=== PATIENT | female | born 1945 | race African-American/Black ===

== ENCOUNTER 2018-01-14 19:24 | Inpatient (IN) ==
[2018-01-14] MEDS ORDERED: SODIUM CHLORIDE 0.9% 500 ML IV STA (19:55)
[2018-01-14] MEDS ORDERED: ASPIRIN 325 MG TABLET PO STA (19:55)
[2018-01-14 20:31] LABS: Basophils % 0.6 % (0.0-0.8); Eosinophils # 0.1 10*3/uL (0.0-0.87); Eosinophils % 4.2 % (0.00-10.9); Hematocrit 26.5 VOL% (35.7-47.0); Hemoglobin 8.4 GM/DL (12.0-16.0); Immature Granulocytes % 2.1 %; Immature Granulocytes Absolute 0.07 #; Lymphocytes # 1.1 10*3/uL (1.4-4.0); Lymphocytes % 33.2 % (21.3-54.2); Mean Corpuscular HGB Conc 31.7 GM/DL (32-36); Mean Corpuscular Hemoglobin 33 PG (27-34); Mean Corpuscular Volume 102.7 FL (87-102); Mean Platelet Volume 10.2 FL (9.6-12.0); Monocytes # 0.4 10*3/uL (0.11-0.8); Monocytes % 12.4 % (1.7-12.7); NRBC # 0.03 10*3/uL; Neutrophils # 1.6 10*3/uL (1.4-7.4); Neutrophils % 47.5 % (38.7-73.9); Platelet Count 124 T/CUMM (130-400); Red Blood Count 2.58 MC/CUMM (3.8-5.5); Red Cell Distribution Width 16.8 % (9.3-17.3); White Blood Count 3.3 T/CUMM (4-12)
[2018-01-14 20:42] LABS: PT Patient Result 10.4 SECS; Partial Thromboplastin Time 23.8 SECS (0-40)
[2018-01-14 20:52] LABS: Anisocytosis 1+; Eosinophils 5 % (0-10); Hypochromasia 1+; Lymphocytes 36 % (20-55); Macrocytosis 1+; Ovalocytes 1+; Platelet Estimate Decreased; Poikilocytosis 1+; Segmented Neutrophils 54 % (50-85); Tear Drop Cells Few; Total Cells Counted 100
[2018-01-14 20:57] LABS: Alanine Aminotransferase 21 U/L (13-56); Albumin 2.9 G/DL (3.4-5.0); Alkaline Phosphatase 69 U/L (45-117); Aspartate Amino Transferase 21 U/L (0-37); Blood Urea Nitrogen 14 MG/DL (7-18); Calcium 8.1 MG/DL (8.5-10.1); Glucose 137 MG/DL (74-106); Osmolality,Calculated 277.7 MOS/KG (273-304); Potassium 3.3 MMOL/L (3.5-5.1); Sodium 138 MMOL/L (136-145); Total Protein 6.9 G/DL (6.4-8.3)
[2018-01-14 21:00] LABS: Troponin I Only 0.086 NG/ML (0.00-0.045)
[2018-01-14 21:00] LABS: Lactic Acid 2.2 MMOL/L (0.4-2.0)
[2018-01-14 21:01] LABS: Thyroid Stimulating Hormone 0.515 uIU/ml (0.358-3.74)
[2018-01-14 21:02] LABS: Apearance,Urine Slightly Hazy (Clear); Bacteria,Urine Occasional /HPF (Few); Bilirubin,Urine Negative (Negative); Blood, Urine Small mg/dL (Negative); Glucose,Urine (UA) >=500 mg/dL (Negative); Ketones,Urine Negative (Negative); Mucus,Urine Occasional /LPF (Occasional); Nitrite,Urine Negative (Negative); Protein,Urine Negative; RBC,Urine 1 /HPF (0-4); Squamous Epithelial Cell,Urine Occasional /HPF (0-10); Urine Color Yellow (Yellow); Urine Specific Gravity 1.015 (1.001-1.035); Urine Urobilinogen < 2.0 EU/DL (0.2-1.0); WBC,Urine 1 /HPF (0-6)
[2018-01-14 21:02] LABS: Ammonia 11 UMOL/L (11-32)
[2018-01-14 21:18] LABS: Barbiturates Screen,Urine Negative (Negative); Benzodiazepines Screen,Urine Negative (Negative); Cannabinoid Screen,Urine Negative (Negative); Opiate Screen,Urine Negative (Negative); Phencyclidine Screen,Urine Negative (Negative)
[2018-01-14] MEDS ORDERED: ASPIRIN 325 MG TABLET ONE (21:37)
[2018-01-14] MEDS ORDERED: POTASSIUM CHLORIDE 20 MEQ TABLET PO STA (21:51)
[2018-01-14] MEDS ORDERED: PIPERACILLIN/TAZOBACTAM 3,375 MG VIAL IV ONE (22:40)
[2018-01-14] MEDS ORDERED: POTASSIUM CHLORIDE 20 MEQ TABLET PO ONE (22:40)
[2018-01-14] MEDS: PIPERACILLIN/TAZOBACTAM 3,375 MG in SODIUM CHLORIDE 0.9% 100 ML IV SCH (22:50)
[2018-01-14 22:53] LABS: PT Patient Result 10.3 SECS; Partial Thromboplastin Time 24.3 SECS (0-40)
[2018-01-15] MEDS ORDERED: MORPHINE 2 MG/1 ML SYRINGE IV PRN (00:33)
[2018-01-15] MEDS ORDERED: ACETAMINOPHEN 325 MG TABLET PO PRN (00:33)
[2018-01-15] MEDS ORDERED: ONDANSETRON 4 MG/2 ML VIAL IV PRN (00:33)
[2018-01-15] MEDS ORDERED: ENOXAPARIN 40 MG/0.4 ML SYRINGE SUBCUT SCH (00:33)
[2018-01-15 02:00] LABS: Lactic Acid 2.6 MMOL/L (0.4-2.0)
[2018-01-15 02:11] LABS: CKMB % 2.1 %
[2018-01-15 02:16] LABS: Troponin I Only 0.099 NG/ML (0.00-0.045)
[2018-01-15] MEDS: SODIUM CHLORIDE 0.9% 1,000 ML IV SCH (02:40)
[2018-01-15 05:15] LABS: Basophils % 0.3 % (0.0-0.8); Eosinophils # 0.1 10*3/uL (0.0-0.87); Eosinophils % 2.9 % (0.00-10.9); Hematocrit 24.8 VOL% (35.7-47.0); Hemoglobin 7.6 GM/DL (12.0-16.0); Immature Granulocytes % 1.3 %; Immature Granulocytes Absolute 0.04 #; Lymphocytes # 1.1 10*3/uL (1.4-4.0); Lymphocytes % 36.5 % (21.3-54.2); Mean Corpuscular HGB Conc 30.6 GM/DL (32-36); Mean Corpuscular Hemoglobin 32 PG (27-34); Mean Corpuscular Volume 104.2 FL (87-102); Monocytes # 0.4 10*3/uL (0.11-0.8); Monocytes % 11.7 % (1.7-12.7); NRBC # 0.05 10*3/uL; Neutrophils # 1.5 10*3/uL (1.4-7.4); Neutrophils % 47.3 % (38.7-73.9); Platelet Count 110 T/CUMM (130-400); Red Blood Count 2.38 MC/CUMM (3.8-5.5); Red Cell Distribution Width 16.9 % (9.3-17.3); White Blood Count 3.1 T/CUMM (4-12)
[2018-01-15 05:41] LABS: Band Neutrophils 3 % (0-10); Eosinophils 3 % (0-10); Giant Platelets Few; Hypochromasia 1+; Lymphocytes 34 % (20-55); Ovalocytes Slight; Platelet Estimate Decreased; Segmented Neutrophils 52 % (50-85); Total Cells Counted 100
[2018-01-15 05:42] LABS: Macrocytosis Slight
[2018-01-15 06:03] LABS: Albumin 2.6 G/DL (3.4-5.0); Bilirubin,Total 0.7 MG/DL (0.2-1.0); Calcium 7.7 MG/DL (8.5-10.1); Osmolality,Calculated 282.3 MOS/KG (273-304); Potassium 3.6 MMOL/L (3.5-5.1)
[2018-01-15 06:05] LABS: Risk Ratio 2.58; VLDL CHOLESTEROL 27.2 MG/DL
[2018-01-15] MEDS: PIPERACILLIN/TAZOBACTAM 3,375 MG in SODIUM CHLORIDE 0.9% 100 ML IV SCH ×3 (06:36→22:52)
[2018-01-15] MEDS ORDERED: NON-FORMULARY MEDICATION (Esomeprazole Magnesium [Esomeprazole] 40 MG) PO SCH (09:00)
[2018-01-15] MEDS ORDERED: ASPIRIN EC 325 MG TABLET PO SCH (09:00)
[2018-01-15] MEDS: CETIRIZINE 10 MG TABLET PO SCH (09:13)
[2018-01-15] MEDS: MULTIVITAMIN (CENTRUM) TABLET PO SCH (09:13)
[2018-01-15] MEDS: CALCIUM (CITRATE) 200 MG TABLET PO SCH (09:13)
[2018-01-15] MEDS: MAGNESIUM CHLORIDE 64 MG TABLET PO SCH (09:13)
[2018-01-15] MEDS: POTASSIUM CHLORIDE 20 MEQ TABLET PO SCH ×2 (09:13→21:08)
[2018-01-15] MEDS: MULTIVITAMIN (OCUVITE) TABLET PO SCH (09:13)
[2018-01-15] MEDS: DOCUSATE SODIUM 100 MG CAPSULE PO SCH ×2 (09:13→21:07)
[2018-01-15] MEDS: ASPIRIN EC 81 MG TABLET PO SCH (09:13)
[2018-01-15] MEDS: PANTOPRAZOLE 40 MG VIAL IV SCH (09:24)
[2018-01-15] MEDS ORDERED: LENALIDOMIDE 10 MG PO SCH (21:00)
[2018-01-15] MEDS ORDERED: DEXAMETHASONE 4 MG TABLET PO SCH (21:00)
[2018-01-15] MEDS: ATORVASTATIN 40 MG TABLET PO SCH (21:08)
[2018-01-15] MEDS: APIXABAN 2.5 MG TABLET PO SCH (21:08)
[2018-01-16] MEDS: PIPERACILLIN/TAZOBACTAM 3,375 MG in SODIUM CHLORIDE 0.9% 100 ML IV SCH ×3 (06:14→23:41)
[2018-01-16] MEDS: SODIUM CHLORIDE 0.9% 1,000 ML IV SCH ×2 (06:15→09:38)
[2018-01-16] MEDS: MULTIVITAMIN (OCUVITE) TABLET PO SCH (09:36)
[2018-01-16] MEDS: CALCIUM (CITRATE) 200 MG TABLET PO SCH (09:36)
[2018-01-16] MEDS: ASPIRIN EC 81 MG TABLET PO SCH (09:37)
[2018-01-16] MEDS: DOCUSATE SODIUM 100 MG CAPSULE PO SCH ×2 (09:37→20:32)
[2018-01-16] MEDS: MAGNESIUM CHLORIDE 64 MG TABLET PO SCH (09:37)
[2018-01-16] MEDS: MULTIVITAMIN (CENTRUM) TABLET PO SCH (09:37)
[2018-01-16] MEDS: CETIRIZINE 10 MG TABLET PO SCH (09:37)
[2018-01-16] MEDS: APIXABAN 2.5 MG TABLET PO SCH ×2 (09:37→20:32)
[2018-01-16] MEDS: POTASSIUM CHLORIDE 20 MEQ TABLET PO SCH ×2 (09:37→20:32)
[2018-01-16] MEDS: PANTOPRAZOLE 40 MG VIAL IV SCH (09:38)
[2018-01-16 10:00] LABS: Apearance,Urine CLEAR (Clear); Bilirubin,Urine Negative (Negative); Blood, Urine Small mg/dL (Negative); Glucose,Urine (UA) >=500 mg/dL (Negative); Ketones,Urine Negative (Negative); Nitrite,Urine Negative (Negative); Protein,Urine Negative; RBC,Urine 2 /HPF (0-4); Squamous Epithelial Cell,Urine Occasional /HPF (0-10); Urine Color Straw (Yellow); Urine Specific Gravity 1.008 (1.001-1.035); Urine Urobilinogen < 2.0 EU/DL (0.2-1.0); WBC,Urine <1 /HPF (0-6)
[2018-01-16] MEDS: ATORVASTATIN 40 MG TABLET PO SCH (20:32)
[2018-01-17] MEDS: SODIUM CHLORIDE 0.9% 1,000 ML IV SCH ×2 (05:06→17:19)
[2018-01-17] MEDS: PIPERACILLIN/TAZOBACTAM 3,375 MG in SODIUM CHLORIDE 0.9% 100 ML IV SCH ×2 (06:05→17:19)
[2018-01-17] MEDS: ASPIRIN EC 81 MG TABLET PO SCH (08:47)
[2018-01-17] MEDS: APIXABAN 2.5 MG TABLET PO SCH (08:47)
[2018-01-17] MEDS: POTASSIUM CHLORIDE 20 MEQ TABLET PO SCH (08:48)
[2018-01-17] MEDS: CETIRIZINE 10 MG TABLET PO SCH (08:48)
[2018-01-17] MEDS: DOCUSATE SODIUM 100 MG CAPSULE PO SCH (08:48)
[2018-01-17] MEDS: MAGNESIUM CHLORIDE 64 MG TABLET PO SCH (08:49)
[2018-01-17] MEDS: MULTIVITAMIN (OCUVITE) TABLET PO SCH (08:50)
[2018-01-17] MEDS: CALCIUM (CITRATE) 200 MG TABLET PO SCH (08:51)
[2018-01-17] MEDS: MULTIVITAMIN (CENTRUM) TABLET PO SCH (08:51)
[2018-01-17] MEDS: PANTOPRAZOLE 40 MG VIAL IV SCH (08:54)
[2018-01-17 19:54] VITALS: BP 121/58
== END 2018-01-17 18:20 | DRG 64 ==
LOC: EDUNIT# → EDBD → N.ED 19:24 → N.EDINP 22:54 → N.4E 23:37
PROVIDERS: ADMIT Family Medicine; ATTEND Family Medicine

== ENCOUNTER 2018-03-30 11:52 | Inpatient (IN) ==
[2018-03-30 15:27] LABS: Eosinophils # 0.1 10*3/uL (0.0-0.87); Hematocrit 28.2 VOL% (35.7-47.0); Hemoglobin 9.1 GM/DL (12.0-16.0); Immature Granulocytes % 0.6 %; Immature Granulocytes Absolute 0.02 #; Lymphocytes # 1.3 10*3/uL (1.4-4.0); Lymphocytes % 37.6 % (21.3-54.2); Mean Corpuscular HGB Conc 32.3 GM/DL (32-36); Mean Corpuscular Hemoglobin 32 PG (27-34); Mean Corpuscular Volume 99.3 FL (87-102); Mean Platelet Volume 10.9 FL (9.6-12.0); Monocytes # 0.4 10*3/uL (0.11-0.8); Monocytes % 12.7 % (1.7-12.7); NRBC # 0.03 10*3/uL; Neutrophils # 1.6 10*3/uL (1.4-7.4); Neutrophils % 45.1 % (38.7-73.9); Platelet Count 71 T/CUMM (130-400); Red Blood Count 2.84 MC/CUMM (3.8-5.5); Red Cell Distribution Width 19.9 % (9.3-17.3); White Blood Count 3.5 T/CUMM (4-12)
[2018-03-30 15:33] LABS: PT Patient Result 10.9 SECS
[2018-03-30 15:43] LABS: Albumin 3.4 G/DL (3.4-5.0); Bilirubin,Total 1.4 MG/DL (0.2-1.0); Calcium 8.6 MG/DL (8.5-10.1); Osmolality,Calculated 278.7 MOS/KG (273-304); Potassium 4.5 MMOL/L (3.5-5.1); Total Protein 6.9 G/DL (6.4-8.3)
[2018-03-30 15:50] LABS: Eosinophils 4 % (0-10); Lymphocytes 37 % (20-55); Nucleated Red Blood Cells 1 (0-5); Segmented Neutrophils 47 % (50-85); Total Cells Counted 100
[2018-03-30 15:51] LABS: Anisocytosis 1+; Elliptocytes Few
[2018-03-30 15:52] LABS: Platelet Estimate Decreased
[2018-03-30 15:58] LABS: Apearance,Urine CLOUDY (Clear); Bilirubin,Urine Negative (Negative); Blood, Urine Moderate mg/dL (Negative); Glucose,Urine (UA) Negative (Negative); Ketones,Urine Negative (Negative); Mucus,Urine Occasional /LPF (Occasional); Nitrite,Urine Negative (Negative); Protein,Urine 30 MG/DL; RBC,Urine 39 /HPF (0-4); Squamous Epithelial Cell,Urine Occasional /HPF (0-10); Urine Color Yellow (Yellow); Urine Specific Gravity 1.017 (1.001-1.035); Urine Urobilinogen < 2.0 EU/DL (0.2-1.0); WBC,Urine 231 /HPF (0-6)
[2018-03-30] MEDS ORDERED: cefTRIAXone 1,000 MG VIAL IV STA (18:14)
[2018-03-30] MEDS ORDERED: SODIUM CHLORIDE 0.9% 500 ML IV STA (18:15)
[2018-03-30] MEDS ORDERED: cefTRIAXone 1,000 MG VIAL ONE (18:35)
[2018-03-30] MEDS: DEXTROSE 5% NACL 0.45% 1,000 ML IV SCH (21:43)
[2018-03-31 05:37] LABS: Basophils % 0.4 % (0.0-0.8); Eosinophils # 0.1 10*3/uL (0.0-0.87); Eosinophils % 5.2 % (0.00-10.9); Hematocrit 22.5 VOL% (35.7-47.0); Hemoglobin 7.6 GM/DL (12.0-16.0); Immature Granulocytes % 0.4 %; Immature Granulocytes Absolute 0.01 #; Lymphocytes # 0.8 10*3/uL (1.4-4.0); Lymphocytes % 29.2 % (21.3-54.2); Mean Corpuscular HGB Conc 33.8 GM/DL (32-36); Mean Corpuscular Hemoglobin 32 PG (27-34); Mean Corpuscular Volume 95.7 FL (87-102); Mean Platelet Volume 11.5 FL (9.6-12.0); Monocytes # 0.5 10*3/uL (0.11-0.8); Monocytes % 16.9 % (1.7-12.7); Neutrophils # 1.3 10*3/uL (1.4-7.4); Neutrophils % 47.9 % (38.7-73.9); Red Blood Count 2.35 MC/CUMM (3.8-5.5); Red Cell Distribution Width 19.8 % (9.3-17.3); White Blood Count 2.7 T/CUMM (4-12)
[2018-03-31 05:43] LABS: Platelet Count 72 T/CUMM (130-400)
[2018-03-31 06:04] LABS: Albumin 2.9 G/DL (3.4-5.0); Bilirubin,Total 1.1 MG/DL (0.2-1.0); Calcium 8.1 MG/DL (8.5-10.1); Osmolality,Calculated 275.8 MOS/KG (273-304); Potassium 3.4 MMOL/L (3.5-5.1); Total Protein 5.5 G/DL (6.4-8.3)
[2018-03-31 06:11] LABS: Band Neutrophils 1 % (0-10); Eosinophils 6 % (0-10); Hypochromasia 1+; Lymphocytes 23 % (20-55); Ovalocytes Slight; Platelet Estimate Decreased; Segmented Neutrophils 59 % (50-85); Total Cells Counted 100
[2018-03-31] MEDS: DEXTROSE 5% NACL 0.45% 1,000 ML IV SCH ×3 (06:27→23:39)
[2018-03-31] MEDS ORDERED: ACETAMINOPHEN 325 MG TABLET PO PRN (08:04)
[2018-03-31 08:59] LABS: Osmolality,Calculated 274.8 MOS/KG (273-304); Potassium 3.6 MMOL/L (3.5-5.1); Total Protein 5.9 G/DL (6.4-8.3)
[2018-03-31 09:28] LABS: Immunoglobulin A < 31 MG/DL (70-400); Immunoglobulin G 1120 MG/DL (700-1600); Immunoglobulin M < 21 MG/DL (40-230); Total Protein 5.9 G/DL (6.4-8.3)
[2018-03-31] MEDS: PANTOPRAZOLE 40 MG TABLET PO SCH (11:02)
[2018-03-31] MEDS: ASPIRIN EC 81 MG TABLET PO SCH (11:02)
[2018-03-31] MEDS: MULTIVITAMIN (OCUVITE) TABLET PO SCH (11:03)
[2018-03-31] MEDS: MAGNESIUM CHLORIDE 64 MG TABLET PO SCH (11:03)
[2018-03-31] MEDS: MULTIVITAMIN (CENTRUM) TABLET PO SCH (11:03)
[2018-03-31] MEDS: CALCIUM (CITRATE) 200 MG TABLET PO SCH (11:05)
[2018-03-31] MEDS: CETIRIZINE 10 MG TABLET PO SCH (11:05)
[2018-03-31] MEDS: DOCUSATE SODIUM 100 MG CAPSULE PO SCH ×2 (11:06→20:59)
[2018-03-31] MEDS: POTASSIUM CHLORIDE 20 MEQ TABLET PO SCH (18:49)
[2018-03-31] MEDS: ATORVASTATIN 40 MG TABLET PO SCH (20:57)
[2018-03-31] MEDS: Lenalidomide [Revlimid] 10 MG PO SCH (20:57)
[2018-04-01] MEDS: DEXTROSE 5% NACL 0.45% 1,000 ML IV SCH ×4 (04:35→23:50)
[2018-04-01 05:47] LABS: Basophils % 0.4 % (0.0-0.8); Eosinophils # 0.1 10*3/uL (0.0-0.87); Eosinophils % 4.4 % (0.00-10.9); Hematocrit 29.9 VOL% (35.7-47.0); Immature Granulocytes % 0.7 %; Immature Granulocytes Absolute 0.02 #; Lymphocytes % 37.6 % (21.3-54.2); Mean Corpuscular HGB Conc 33.8 GM/DL (32-36); Mean Corpuscular Hemoglobin 32 PG (27-34); Mean Corpuscular Volume 94.3 FL (87-102); Mean Platelet Volume 10.6 FL (9.6-12.0); Monocytes # 0.4 10*3/uL (0.11-0.8); Monocytes % 14.2 % (1.7-12.7); Neutrophils # 1.2 10*3/uL (1.4-7.4); Neutrophils % 42.7 % (38.7-73.9); Platelet Count 76 T/CUMM (130-400); Red Blood Count 3.17 MC/CUMM (3.8-5.5); Red Cell Distribution Width 18.7 % (9.3-17.3); White Blood Count 2.7 T/CUMM (4-12)
[2018-04-01 05:53] LABS: Hemoglobin 10.1 GM/DL (12.0-16.0)
[2018-04-01 06:00] LABS: Immunoglobulin A (Chem) < 31 MG/DL (70-400); Immunoglobulin G (Chem) 1120 MG/DL (700-1600); Immunoglobulin M (Chem) < 21 MG/DL (40-230); Total Protein (Chem) 5.9 G/DL (6.4-8.3)
[2018-04-01 06:11] LABS: Band Neutrophils 1 % (0-10); Eosinophils 7 % (0-10); Hypochromasia 1+; Lymphocytes 32 % (20-55); Platelet Estimate Decreased; Segmented Neutrophils 47 % (50-85); Total Cells Counted 100
[2018-04-01 06:12] LABS: Giant Platelets Few; Ovalocytes Slight
[2018-04-01 09:35] LABS: Albumin (SPE) 3.5 G/DL (3.2-5.3); Albumin (SPE) Rel % 59.5 %; Alpha 1 (SPE) 0.2 G/DL (0.1-0.4); Alpha 1 (SPE) Rel % 3.5 %; Alpha 2 (SPE) 0.6 G/DL (0.4-1.0); Alpha 2 (SPE) Rel % 9.6 %; Beta (SPE) 0.7 G/DL (0.5-1.1); Beta (SPE) Rel % 11.8 %; Gamma (SPE) 0.9 G/DL (0.7-1.7)
[2018-04-01 09:36] LABS: Gamma (SPE) Rel % 15.6 %
[2018-04-01 10:02] LABS: Immuno Free Light Chain Kappa 1.24 MG/DL (0.33-1.94); Immuno Free Light Chain Lambda 0.65 MG/DL (0.57-2.63); Immuno Free Light Chain Ratio 1.91 MG/DL (0.26-1.65)
[2018-04-01] MEDS: MULTIVITAMIN (OCUVITE) TABLET PO SCH (10:08)
[2018-04-01] MEDS: POTASSIUM CHLORIDE 20 MEQ TABLET PO SCH ×2 (10:08→17:24)
[2018-04-01] MEDS: PANTOPRAZOLE 40 MG TABLET PO SCH (10:08)
[2018-04-01] MEDS: MULTIVITAMIN (CENTRUM) TABLET PO SCH (10:08)
[2018-04-01] MEDS: CALCIUM (CITRATE) 200 MG TABLET PO SCH (10:08)
[2018-04-01] MEDS: MAGNESIUM CHLORIDE 64 MG TABLET PO SCH (10:08)
[2018-04-01] MEDS: CETIRIZINE 10 MG TABLET PO SCH (10:08)
[2018-04-01] MEDS: DOCUSATE SODIUM 100 MG CAPSULE PO SCH ×2 (10:09→21:38)
[2018-04-01] MEDS: ASPIRIN EC 81 MG TABLET PO SCH (10:09)
[2018-04-01] MEDS: FILGRASTIM-SNDZ 300 MCG/0.5 ML SYRINGE SUBCUT SCH (10:09)
[2018-04-01] MEDS: VANCOMYCIN INJ 1,000 MG in SODIUM CHLORIDE 0.9% 250 ML IV SCH ×2 (10:52→23:11)
[2018-04-01] MEDS ORDERED: DIPHENOXYLATE/ATROPINE 2.5-0.025 MG TABLET PO PRN (13:13)
[2018-04-01] MEDS: Lenalidomide [Revlimid] 10 MG PO SCH (20:58)
[2018-04-01] MEDS: ATORVASTATIN 40 MG TABLET PO SCH (20:58)
[2018-04-02 06:18] LABS: Basophils % 0.6 % (0.0-0.8); Eosinophils # 0.2 10*3/uL (0.0-0.87); Eosinophils % 4.4 % (0.00-10.9); Hemoglobin 9.5 GM/DL (12.0-16.0); Immature Granulocytes % 0.8 %; Immature Granulocytes Absolute 0.03 #; Lymphocytes # 0.9 10*3/uL (1.4-4.0); Lymphocytes % 25.8 % (21.3-54.2); Mean Corpuscular HGB Conc 32.8 GM/DL (32-36); Mean Corpuscular Hemoglobin 31 PG (27-34); Mean Corpuscular Volume 94.5 FL (87-102); Mean Platelet Volume 11.4 FL (9.6-12.0); Monocytes # 0.5 10*3/uL (0.11-0.8); Monocytes % 13.3 % (1.7-12.7); Neutrophils % 55.1 % (38.7-73.9); Platelet Count 75 T/CUMM (130-400); Red Blood Count 3.07 MC/CUMM (3.8-5.5); White Blood Count 3.6 T/CUMM (4-12)
[2018-04-02 07:07] LABS: Band Neutrophils 7 % (0-10); Eosinophils 2 % (0-10); Hypochromasia Slight; Lymphocytes 23 % (20-55); Myelocytes 1 %; Nucleated Red Blood Cells 1 (0-5); Segmented Neutrophils 58 % (50-85); Total Cells Counted 100
[2018-04-02 07:08] LABS: Platelet Estimate Decreased
[2018-04-02 07:09] LABS: Albumin 2.3 G/DL (3.4-5.0); Bilirubin,Total 1.3 MG/DL (0.2-1.0); Calcium 6.8 MG/DL (8.5-10.1); Osmolality,Calculated 282.1 MOS/KG (273-304); Potassium 3.5 MMOL/L (3.5-5.1); Total Protein 4.9 G/DL (6.4-8.3)
[2018-04-02] MEDS ORDERED: DEXAMETHASONE 4 MG TABLET PO SCH (08:04)
[2018-04-02] MEDS: FLUCONAZOLE 200 MG TABLET PO SCH (09:29)
[2018-04-02] MEDS: MULTIVITAMIN (OCUVITE) TABLET PO SCH (09:29)
[2018-04-02] MEDS: MAGNESIUM CHLORIDE 64 MG TABLET PO SCH (09:29)
[2018-04-02] MEDS: MULTIVITAMIN (CENTRUM) TABLET PO SCH (09:29)
[2018-04-02] MEDS: CALCIUM (CITRATE) 200 MG TABLET PO SCH (09:29)
[2018-04-02] MEDS: FILGRASTIM-SNDZ 300 MCG/0.5 ML SYRINGE SUBCUT SCH (09:30)
[2018-04-02] MEDS: CETIRIZINE 10 MG TABLET PO SCH (09:30)
[2018-04-02] MEDS: PANTOPRAZOLE 40 MG TABLET PO SCH (09:30)
[2018-04-02] MEDS: POTASSIUM CHLORIDE 20 MEQ TABLET PO SCH ×2 (09:30→18:16)
[2018-04-02] MEDS: ASPIRIN EC 81 MG TABLET PO SCH (09:30)
[2018-04-02] MEDS: DOCUSATE SODIUM 100 MG CAPSULE PO SCH ×2 (09:34→21:06)
[2018-04-02] MEDS: VANCOMYCIN INJ 1,000 MG in SODIUM CHLORIDE 0.9% 250 ML IV SCH ×2 (09:39→21:06)
[2018-04-02] MEDS: DEXTROSE 5% NACL 0.45% 1,000 ML IV SCH ×2 (16:15)
[2018-04-02] MEDS: ATORVASTATIN 40 MG TABLET PO SCH (21:06)
[2018-04-02] MEDS: Lenalidomide [Revlimid] 10 MG PO SCH (21:06)
[2018-04-03] MEDS: DEXTROSE 5% NACL 0.45% 1,000 ML IV SCH ×5 (02:00→20:04)
[2018-04-03 04:08] LABS: Basophils % 0.5 % (0.0-0.8); Hematocrit 29.2 VOL% (35.7-47.0); Hemoglobin 10.2 GM/DL (12.0-16.0); Immature Granulocytes % 14.1 %; Immature Granulocytes Absolute 1.06 #; Lymphocytes # 1.4 10*3/uL (1.4-4.0); Lymphocytes % 18.5 % (21.3-54.2); Mean Corpuscular HGB Conc 34.9 GM/DL (32-36); Mean Corpuscular Hemoglobin 32 PG (27-34); Mean Corpuscular Volume 90.7 FL (87-102); Monocytes # 0.8 10*3/uL (0.11-0.8); Monocytes % 10.2 % (1.7-12.7); Neutrophils # 4.3 10*3/uL (1.4-7.4); Neutrophils % 56.7 % (38.7-73.9); Platelet Count 104 T/CUMM (130-400); Red Blood Count 3.22 MC/CUMM (3.8-5.5); Red Cell Distribution Width 18.6 % (9.3-17.3); White Blood Count 7.5 T/CUMM (4-12)
[2018-04-03 04:37] LABS: Band Neutrophils 3 % (0-10); Hypochromasia 1+; Lymphocytes 11 % (20-55); Segmented Neutrophils 72 % (50-85); Total Cells Counted 100
[2018-04-03 04:38] LABS: Platelet Estimate Decreased
[2018-04-03 04:41] LABS: Albumin 2.6 G/DL (3.4-5.0); Bilirubin,Total 1.1 MG/DL (0.2-1.0); Calcium 7.2 MG/DL (8.5-10.1); Osmolality,Calculated 279.5 MOS/KG (273-304); Total Protein 5.5 G/DL (6.4-8.3)
[2018-04-03] MEDS: POTASSIUM CHLORIDE 20 MEQ TABLET PO SCH ×2 (09:42→16:37)
[2018-04-03] MEDS: FLUCONAZOLE 200 MG TABLET PO SCH (09:42)
[2018-04-03] MEDS: DOCUSATE SODIUM 100 MG CAPSULE PO SCH ×2 (09:42→20:57)
[2018-04-03] MEDS: PANTOPRAZOLE 40 MG TABLET PO SCH (09:42)
[2018-04-03] MEDS: MAGNESIUM CHLORIDE 64 MG TABLET PO SCH (09:42)
[2018-04-03] MEDS: CALCIUM (CITRATE) 200 MG TABLET PO SCH (09:42)
[2018-04-03] MEDS: MULTIVITAMIN (OCUVITE) TABLET PO SCH (09:42)
[2018-04-03] MEDS: FILGRASTIM-SNDZ 300 MCG/0.5 ML SYRINGE SUBCUT SCH (09:43)
[2018-04-03] MEDS: ASPIRIN EC 81 MG TABLET PO SCH (09:43)
[2018-04-03] MEDS: CETIRIZINE 10 MG TABLET PO SCH (09:43)
[2018-04-03] MEDS: MULTIVITAMIN (CENTRUM) TABLET PO SCH (09:47)
[2018-04-03] MEDS: VANCOMYCIN INJ 1,000 MG in SODIUM CHLORIDE 0.9% 250 ML IV SCH ×2 (09:48→20:58)
[2018-04-03] MEDS: ATORVASTATIN 40 MG TABLET PO SCH (20:57)
[2018-04-03] MEDS: Lenalidomide [Revlimid] 10 MG PO SCH (20:57)
[2018-04-04 05:25] LABS: Basophils % 0.4 % (0.0-0.8); Eosinophils % 0.1 % (0.00-10.9); Hematocrit 29.1 VOL% (35.7-47.0); Hemoglobin 9.6 GM/DL (12.0-16.0); Immature Granulocytes % 1.8 %; Immature Granulocytes Absolute 0.17 #; Lymphocytes # 1.2 10*3/uL (1.4-4.0); Lymphocytes % 12.1 % (21.3-54.2); Mean Corpuscular Hemoglobin 31 PG (27-34); Mean Corpuscular Volume 94.8 FL (87-102); Mean Platelet Volume 10.9 FL (9.6-12.0); Monocytes # 1.3 10*3/uL (0.11-0.8); Neutrophils % 72.6 % (38.7-73.9); Platelet Count 111 T/CUMM (130-400); Red Blood Count 3.07 MC/CUMM (3.8-5.5); Red Cell Distribution Width 18.9 % (9.3-17.3); White Blood Count 9.7 T/CUMM (4-12)
[2018-04-04 05:51] LABS: Band Neutrophils 2 % (0-10); Lymphocytes 20 % (20-55); Segmented Neutrophils 66 % (50-85); Total Cells Counted 100
[2018-04-04 05:52] LABS: Hypochromasia 1+
[2018-04-04 05:53] LABS: Anisocytosis Slight; Elliptocytes Few; Spherocytes Few
[2018-04-04 05:54] LABS: Platelet Estimate Decreased
[2018-04-04 06:26] LABS: Albumin 2.6 G/DL (3.4-5.0); Bilirubin,Total 0.8 MG/DL (0.2-1.0); Calcium 7.2 MG/DL (8.5-10.1); Potassium 3.8 MMOL/L (3.5-5.1); Total Protein 5.4 G/DL (6.4-8.3)
[2018-04-04] MEDS: VANCOMYCIN INJ 1,000 MG in SODIUM CHLORIDE 0.9% 250 ML IV SCH ×2 (09:57→23:02)
[2018-04-04] MEDS: MULTIVITAMIN (OCUVITE) TABLET PO SCH (09:59)
[2018-04-04] MEDS: ASPIRIN EC 81 MG TABLET PO SCH (09:59)
[2018-04-04] MEDS: PANTOPRAZOLE 40 MG TABLET PO SCH (09:59)
[2018-04-04] MEDS: CIPROFLOXACIN 250 MG TABLET PO SCH ×2 (09:59→22:21)
[2018-04-04] MEDS: MAGNESIUM CHLORIDE 64 MG TABLET PO SCH (09:59)
[2018-04-04] MEDS: POTASSIUM CHLORIDE 20 MEQ TABLET PO SCH ×2 (09:59→17:13)
[2018-04-04] MEDS: CALCIUM (CITRATE) 200 MG TABLET PO SCH (09:59)
[2018-04-04] MEDS: CETIRIZINE 10 MG TABLET PO SCH (10:00)
[2018-04-04] MEDS: DEXTROSE 5% NACL 0.45% 1,000 ML IV SCH ×2 (10:01→19:25)
[2018-04-04] MEDS: FILGRASTIM-SNDZ 300 MCG/0.5 ML SYRINGE SUBCUT SCH (10:01)
[2018-04-04] MEDS: MULTIVITAMIN (CENTRUM) TABLET PO SCH (10:05)
[2018-04-04] MEDS: DOCUSATE SODIUM 100 MG CAPSULE PO SCH ×2 (10:10→22:21)
[2018-04-04] MEDS: ATORVASTATIN 40 MG TABLET PO SCH (22:20)
[2018-04-04] MEDS: Lenalidomide [Revlimid] 10 MG PO SCH (22:20)
[2018-04-05 04:01] LABS: Basophils # 0.1 10*3/uL (0.0-0.2); Basophils % 0.7 % (0.0-0.8); Eosinophils # 0.2 10*3/uL (0.0-0.87); Eosinophils % 2.3 % (0.00-10.9); Hematocrit 28.3 VOL% (35.7-47.0); Hemoglobin 9.5 GM/DL (12.0-16.0); Immature Granulocytes % 1.5 %; Immature Granulocytes Absolute 0.11 #; Lymphocytes % 14.1 % (21.3-54.2); Mean Corpuscular HGB Conc 33.6 GM/DL (32-36); Mean Corpuscular Hemoglobin 32 PG (27-34); Mean Corpuscular Volume 94.3 FL (87-102); Mean Platelet Volume 10.6 FL (9.6-12.0); NRBC # 0.02 10*3/uL; Neutrophils % 67.4 % (38.7-73.9); Platelet Count 99 T/CUMM (130-400); Red Cell Distribution Width 19.2 % (9.3-17.3); White Blood Count 7.4 T/CUMM (4-12)
[2018-04-05 04:19] LABS: Albumin 2.3 G/DL (3.4-5.0); Calcium 6.5 MG/DL (8.5-10.1); Osmolality,Calculated 285.8 MOS/KG (273-304); Potassium 3.5 MMOL/L (3.5-5.1); Total Protein 4.9 G/DL (6.4-8.3)
[2018-04-05] MEDS: DEXTROSE 5% NACL 0.45% 1,000 ML IV SCH (04:41)
[2018-04-05 07:01] LABS: Band Neutrophils 1 % (0-10); Lymphocytes 12 % (20-55); Platelet Estimate Decreased; Segmented Neutrophils 83 % (50-85); Total Cells Counted 100
[2018-04-05] MEDS: MULTIVITAMIN (CENTRUM) TABLET PO SCH (11:19)
[2018-04-05] MEDS: CALCIUM (CITRATE) 200 MG TABLET PO SCH (11:19)
[2018-04-05] MEDS: MULTIVITAMIN (OCUVITE) TABLET PO SCH (11:19)
[2018-04-05] MEDS: PANTOPRAZOLE 40 MG TABLET PO SCH (11:20)
[2018-04-05] MEDS: CIPROFLOXACIN 250 MG TABLET PO SCH ×2 (11:20→20:36)
[2018-04-05] MEDS: ASPIRIN EC 81 MG TABLET PO SCH (11:20)
[2018-04-05] MEDS: MAGNESIUM CHLORIDE 64 MG TABLET PO SCH (11:20)
[2018-04-05] MEDS: POTASSIUM CHLORIDE 20 MEQ TABLET PO SCH ×2 (11:20→18:16)
[2018-04-05] MEDS: DOCUSATE SODIUM 100 MG CAPSULE PO SCH ×2 (11:20→20:36)
[2018-04-05] MEDS: CETIRIZINE 10 MG TABLET PO SCH (11:20)
[2018-04-05] MEDS: VANCOMYCIN INJ 1,000 MG in SODIUM CHLORIDE 0.9% 250 ML IV SCH ×2 (11:21→20:59)
[2018-04-05] MEDS: FILGRASTIM-SNDZ 300 MCG/0.5 ML SYRINGE SUBCUT SCH (11:21)
[2018-04-05] MEDS: NYSTATIN 500,000 UNIT/5 ML UDCUP SWISH/SWAL SCH ×3 (13:15→20:34)
[2018-04-05] MEDS: Lenalidomide [Revlimid] 10 MG PO SCH (20:35)
[2018-04-05] MEDS: ATORVASTATIN 40 MG TABLET PO SCH (20:36)
[2018-04-06] MEDS: DEXTROSE 5% NACL 0.45% 1,000 ML IV SCH ×4 (01:56→11:56)
[2018-04-06 06:57] LABS: Basophils % 0.6 % (0.0-0.8); Eosinophils # 0.3 10*3/uL (0.0-0.87); Eosinophils % 3.8 % (0.00-10.9); Hematocrit 29.5 VOL% (35.7-47.0); Hemoglobin 9.6 GM/DL (12.0-16.0); Immature Granulocytes % 1.7 %; Immature Granulocytes Absolute 0.11 #; Lymphocytes # 1.2 10*3/uL (1.4-4.0); Lymphocytes % 18.8 % (21.3-54.2); Mean Corpuscular HGB Conc 32.5 GM/DL (32-36); Mean Corpuscular Hemoglobin 31 PG (27-34); Mean Corpuscular Volume 96.1 FL (87-102); Monocytes # 0.7 10*3/uL (0.11-0.8); Monocytes % 10.7 % (1.7-12.7); Neutrophils # 4.3 10*3/uL (1.4-7.4); Neutrophils % 64.4 % (38.7-73.9); Platelet Count 96 T/CUMM (130-400); Red Blood Count 3.07 MC/CUMM (3.8-5.5); Red Cell Distribution Width 18.6 % (9.3-17.3); White Blood Count 6.6 T/CUMM (4-12)
[2018-04-06 07:20] LABS: Band Neutrophils 7 % (0-10); Eosinophils 2 % (0-10); Hypochromasia Slight; Lymphocytes 18 % (20-55); Platelet Estimate Decreased; Polychromasia Slight; Segmented Neutrophils 62 % (50-85); Total Cells Counted 100
[2018-04-06 07:26] LABS: Albumin 2.4 G/DL (3.4-5.0); Bilirubin,Total 1.1 MG/DL (0.2-1.0); Osmolality,Calculated 285.8 MOS/KG (273-304); Potassium 3.4 MMOL/L (3.5-5.1)
[2018-04-06] MEDS: NYSTATIN 500,000 UNIT/5 ML UDCUP SWISH/SWAL SCH ×5 (09:00→21:24)
[2018-04-06] MEDS: VANCOMYCIN INJ 1,000 MG in SODIUM CHLORIDE 0.9% 250 ML IV SCH ×2 (11:51→21:22)
[2018-04-06] MEDS: CETIRIZINE 10 MG TABLET PO SCH (11:52)
[2018-04-06] MEDS: ASPIRIN EC 81 MG TABLET PO SCH (11:52)
[2018-04-06] MEDS: FILGRASTIM-SNDZ 300 MCG/0.5 ML SYRINGE SUBCUT SCH (11:52)
[2018-04-06] MEDS: MULTIVITAMIN (CENTRUM) TABLET PO SCH (11:52)
[2018-04-06] MEDS: CALCIUM (CITRATE) 200 MG TABLET PO SCH (11:52)
[2018-04-06] MEDS: MAGNESIUM CHLORIDE 64 MG TABLET PO SCH (11:52)
[2018-04-06] MEDS: PANTOPRAZOLE 40 MG TABLET PO SCH (11:53)
[2018-04-06] MEDS: DOCUSATE SODIUM 100 MG CAPSULE PO SCH ×2 (11:53→21:18)
[2018-04-06] MEDS: CIPROFLOXACIN 250 MG TABLET PO SCH ×2 (11:53→21:18)
[2018-04-06] MEDS: MULTIVITAMIN (OCUVITE) TABLET PO SCH (11:53)
[2018-04-06] MEDS: POTASSIUM CHLORIDE 20 MEQ TABLET PO SCH ×3 (11:57→18:20)
[2018-04-06] MEDS: Lenalidomide [Revlimid] 10 MG PO SCH (21:17)
[2018-04-06] MEDS: ATORVASTATIN 40 MG TABLET PO SCH (21:18)
[2018-04-07] MEDS: DEXTROSE 5% NACL 0.45% 1,000 ML IV SCH ×3 (04:08→13:18)
[2018-04-07 05:28] LABS: Basophils % 0.4 % (0.0-0.8); Eosinophils # 0.2 10*3/uL (0.0-0.87); Eosinophils % 4.2 % (0.00-10.9); Hemoglobin 9.2 GM/DL (12.0-16.0); Immature Granulocytes % 1.9 %; Immature Granulocytes Absolute 0.09 #; Lymphocytes # 1.1 10*3/uL (1.4-4.0); Lymphocytes % 23.1 % (21.3-54.2); Mean Corpuscular HGB Conc 32.9 GM/DL (32-36); Mean Corpuscular Hemoglobin 31 PG (27-34); Mean Corpuscular Volume 95.2 FL (87-102); Mean Platelet Volume 10.7 FL (9.6-12.0); Monocytes # 0.5 10*3/uL (0.11-0.8); Monocytes % 10.8 % (1.7-12.7); Neutrophils # 2.9 10*3/uL (1.4-7.4); Neutrophils % 59.6 % (38.7-73.9); Platelet Count 101 T/CUMM (130-400); Red Blood Count 2.94 MC/CUMM (3.8-5.5); Red Cell Distribution Width 18.7 % (9.3-17.3); White Blood Count 4.8 T/CUMM (4-12)
[2018-04-07 05:53] LABS: Atypical Lymphocytes Few; Band Neutrophils 2 % (0-10); Eosinophils 6 % (0-10); Hypochromasia 1+; Lymphocytes 29 % (20-55); Microcytosis 1+; Segmented Neutrophils 54 % (50-85); Total Cells Counted 100
[2018-04-07 05:54] LABS: Ovalocytes Slight
[2018-04-07 05:55] LABS: Platelet Estimate Decreased
[2018-04-07 06:02] LABS: Albumin 2.3 G/DL (3.4-5.0); Bilirubin,Total 1.2 MG/DL (0.2-1.0); Total Protein 4.9 G/DL (6.4-8.3)
[2018-04-07 07:34] VITALS: BP 101/61
[2018-04-07] MEDS ORDERED: POTASSIUM CHLORIDE 20 MEQ TABLET PO SCH ×2 (09:00→15:00)
[2018-04-07] MEDS: VANCOMYCIN INJ 1,000 MG in SODIUM CHLORIDE 0.9% 250 ML IV SCH (10:03)
[2018-04-07] MEDS: MULTIVITAMIN (OCUVITE) TABLET PO SCH (10:03)
[2018-04-07] MEDS: MAGNESIUM CHLORIDE 64 MG TABLET PO SCH (10:04)
[2018-04-07] MEDS: CALCIUM (CITRATE) 200 MG TABLET PO SCH (10:04)
[2018-04-07] MEDS: NYSTATIN 500,000 UNIT/5 ML UDCUP SWISH/SWAL SCH ×2 (10:04→13:18)
[2018-04-07] MEDS: MULTIVITAMIN (CENTRUM) TABLET PO SCH (10:04)
[2018-04-07] MEDS: CIPROFLOXACIN 250 MG TABLET PO SCH (10:04)
[2018-04-07] MEDS: DOCUSATE SODIUM 100 MG CAPSULE PO SCH (10:05)
[2018-04-07] MEDS: ASPIRIN EC 81 MG TABLET PO SCH (10:05)
[2018-04-07] MEDS: CETIRIZINE 10 MG TABLET PO SCH (10:05)
[2018-04-07] MEDS: PANTOPRAZOLE 40 MG TABLET PO SCH (10:05)
[2018-04-07] MEDS: FILGRASTIM-SNDZ 300 MCG/0.5 ML SYRINGE SUBCUT SCH (10:10)
[2018-04-07] MEDS ORDERED: POTASSIUM CHLORIDE 20 MEQ TABLET PO ONE (13:27)
[2018-04-07] MEDS: POTASSIUM CHLORIDE 20 MEQ TABLET PO SCH (13:43)
== END 2018-04-07 14:10 | disposition home health service (06) | DRG 372 ==
LOC: N.ED 11:52 → N.EDINP 17:30 → N.4E 18:06
PROVIDERS: ADMIT Family Medicine; ATTEND Family Medicine

== ENCOUNTER 2018-10-13 10:34 | Inpatient (IN) ==
[2018-10-13] MEDS ORDERED: HYDROmorphone 2 MG/1 ML VIAL IV STA (10:59)
[2018-10-13] MEDS ORDERED: ONDANSETRON 4 MG/2 ML VIAL IV STA (10:59)
[2018-10-13 11:24] LABS: Basophils % 0.4 % (0.0-0.8); Eosinophils # 0.1 10*3/uL (0.0-0.87); Eosinophils % 4.7 % (0.00-10.9); Hematocrit 30.3 VOL% (35.7-47.0); Hemoglobin 9.6 GM/DL (12.0-16.0); Immature Granulocytes % 1.1 %; Immature Granulocytes Absolute 0.03 #; Lymphocytes # 1.1 10*3/uL (1.4-4.0); Lymphocytes % 40.1 % (21.3-54.2); Mean Corpuscular HGB Conc 31.7 GM/DL (32-36); Mean Corpuscular Hemoglobin 31 PG (27-34); Mean Corpuscular Volume 96.8 FL (87-102); Mean Platelet Volume 11.7 FL (9.6-12.0); Monocytes # 0.4 10*3/uL (0.11-0.8); Monocytes % 13.6 % (1.7-12.7); Neutrophils # 1.1 10*3/uL (1.4-7.4); Neutrophils % 40.1 % (38.7-73.9); Red Blood Count 3.13 MC/CUMM (3.8-5.5); Red Cell Distribution Width 17.2 % (9.3-17.3); White Blood Count 2.8 T/CUMM (4-12)
[2018-10-13 11:26] LABS: Platelet Count 73 T/CUMM (130-400)
[2018-10-13 11:59] LABS: Eosinophils 3 % (0-10); Lymphocytes 40 % (20-55); Segmented Neutrophils 41 % (50-85); Total Cells Counted 100
[2018-10-13 12:00] LABS: Hypochromasia 1+; Platelet Estimate Decreased
[2018-10-13 12:01] LABS: Anisocytosis 1+; Ovalocytes Few
[2018-10-13 12:02] LABS: Tear Drop Cells Few
[2018-10-13 12:03] LABS: Albumin 2.9 G/DL (3.4-5.0); Atypical Lymphocytes Moderate; Bilirubin,Total 0.8 MG/DL (0.2-1.0); Calcium 8.9 MG/DL (8.5-10.1); Osmolality,Calculated 282.4 MOS/KG (273-304); Potassium 4.4 MMOL/L (3.5-5.1); Total Protein 7.9 G/DL (6.4-8.3)
[2018-10-13] MEDS ORDERED: ONDANSETRON 4 MG/2 ML VIAL IV PRN (15:09)
[2018-10-13] MEDS ORDERED: ACETAMINOPHEN 325 MG TABLET PO PRN (15:09)
[2018-10-13] MEDS: ACYCLOVIR INJ 500 MG in SODIUM CHLORIDE 0.9% 100 ML IV SCH ×2 (16:09→23:50)
[2018-10-13] MEDS: SODIUM CHLORIDE 0.9% 1,000 ML IV SCH (16:09)
[2018-10-13] MEDS: HYDROmorphone 2 MG/1 ML VIAL IV PRN ×2 (17:54→22:14)
[2018-10-13 18:24] LABS: INR 1.1; PT Patient Result 11.6 SECS; Partial Thromboplastin Time 27.8 SECS (0-40)
[2018-10-13] MEDS: CEFTAROLINE 600 MG in SODIUM CHLORIDE 0.9% 100 ML IV SCH (18:30)
[2018-10-13] MEDS: ATORVASTATIN 40 MG TABLET PO SCH (21:50)
[2018-10-13] MEDS: DOCUSATE SODIUM 100 MG CAPSULE PO SCH (22:23)
[2018-10-14] MEDS: HYDROmorphone 2 MG/1 ML VIAL IV PRN ×2 (01:33→23:41)
[2018-10-14] MEDS: SODIUM CHLORIDE 0.9% 1,000 ML IV SCH ×3 (03:59→20:59)
[2018-10-14] MEDS: CEFTAROLINE 600 MG in SODIUM CHLORIDE 0.9% 100 ML IV SCH ×2 (06:40→17:36)
[2018-10-14] MEDS ORDERED: MAGNESIUM HYDROXIDE SUSP 30 ML UDCUP PO ONE (07:42)
[2018-10-14 09:15] LABS: Immunoglobulin A < 31 MG/DL (70-400); Immunoglobulin G 1940 MG/DL (700-1600); Immunoglobulin M 21 MG/DL (40-230)
[2018-10-14 10:27] LABS: Immuno Free Light Chain Kappa 11.39 MG/DL (0.33-1.94); Immuno Free Light Chain Ratio 9.49 MG/DL (0.26-1.65)
[2018-10-14] MEDS: DOCUSATE SODIUM 100 MG CAPSULE PO SCH ×2 (10:51→20:59)
[2018-10-14] MEDS: ASPIRIN EC 81 MG TABLET PO SCH (10:51)
[2018-10-14] MEDS: PANTOPRAZOLE 40 MG TABLET PO SCH (10:51)
[2018-10-14] MEDS: CETIRIZINE 10 MG TABLET PO SCH (10:52)
[2018-10-14] MEDS: MAGNESIUM CHLORIDE 64 MG TABLET PO SCH (10:52)
[2018-10-14] MEDS: MULTIVITAMIN (OCUVITE) TABLET PO SCH (10:53)
[2018-10-14 10:54] LABS: Immunoglobulin A (Chem) < 31 MG/DL (70-400); Immunoglobulin G (Chem) 1940 MG/DL (700-1600); Immunoglobulin M (Chem) 21 MG/DL (40-230)
[2018-10-14] MEDS: MULTIVITAMIN (CENTRUM) TABLET PO SCH (10:54)
[2018-10-14] MEDS: POTASSIUM CHLORIDE 20 MEQ TABLET PO SCH ×2 (10:54→17:36)
[2018-10-14] MEDS: BACITRACIN OINT 0.9 GM PACK TOP SCH (12:44)
[2018-10-14] MEDS: CALCIUM (CITRATE)/VITAMIN D 200 MG-125 UNIT TABLET PO SCH (12:45)
[2018-10-14] MEDS: LENALIDOMIDE 20 MG PO SCH (20:57)
[2018-10-14] MEDS: ATORVASTATIN 40 MG TABLET PO SCH (20:57)
[2018-10-15] MEDS: HYDROmorphone 2 MG/1 ML VIAL IV PRN (05:30)
[2018-10-15] MEDS: SODIUM CHLORIDE 0.9% 1,000 ML IV SCH ×2 (06:07→19:00)
[2018-10-15] MEDS: CEFTAROLINE 600 MG in SODIUM CHLORIDE 0.9% 100 ML IV SCH ×2 (06:08→18:59)
[2018-10-15] MEDS: MAGNESIUM CHLORIDE 64 MG TABLET PO SCH (09:00)
[2018-10-15] MEDS: MULTIVITAMIN (CENTRUM) TABLET PO SCH (09:00)
[2018-10-15] MEDS ORDERED: DEXAMETHASONE 4 MG TABLET PO SCH (09:00)
[2018-10-15] MEDS: POTASSIUM CHLORIDE 20 MEQ TABLET PO SCH ×2 (09:01→18:59)
[2018-10-15] MEDS: CETIRIZINE 10 MG TABLET PO SCH (09:01)
[2018-10-15] MEDS: MULTIVITAMIN (OCUVITE) TABLET PO SCH (09:01)
[2018-10-15] MEDS: FILGRASTIM-SNDZ 300 MCG/0.5 ML SYRINGE SUBCUT SCH (09:02)
[2018-10-15] MEDS: PANTOPRAZOLE 40 MG TABLET PO SCH (09:02)
[2018-10-15] MEDS: CALCIUM (CITRATE)/VITAMIN D 200 MG-125 UNIT TABLET PO SCH (09:02)
[2018-10-15] MEDS: ASPIRIN EC 81 MG TABLET PO SCH (09:02)
[2018-10-15] MEDS: BACITRACIN OINT 0.9 GM PACK TOP SCH (09:03)
[2018-10-15] MEDS: DOCUSATE SODIUM 100 MG CAPSULE PO SCH ×2 (09:03→21:12)
[2018-10-15] MEDS ORDERED: ceFAZolin 1,000 MG in SYRINGE 1 EACH IV ONE (13:29)
[2018-10-15] MEDS ORDERED: LIDOCAINE 1%/EPI INJ 20 ML VIAL ONE (14:16)
[2018-10-15] MEDS ORDERED: BUPIVACAINE 0.5% /EPI 10 ML VIAL ONE (14:16)
[2018-10-15] MEDS ORDERED: HYDROmorphone 2 MG/1 ML VIAL IV PRN (15:20)
[2018-10-15] MEDS ORDERED: PROMETHAZINE INJ 25 MG in SODIUM CHLORIDE 0.9% 50 ML IV PRN (15:20)
[2018-10-15] MEDS ORDERED: MEPERIDINE 25 MG/1 ML VIAL IV PRN (15:20)
[2018-10-15] MEDS ORDERED: diphenhydrAMINE 50 MG/1 ML VIAL IV PRN (15:20)
[2018-10-15] MEDS ORDERED: ONDANSETRON 4 MG/2 ML VIAL IV PRN (15:20)
[2018-10-15] MEDS ORDERED: ACETAMINOPHEN 1,000 MG/100 ML VIAL IV ONE (17:17)
[2018-10-15] MEDS ORDERED: KETOROLAC 30 MG/1 ML VIAL ONE (17:17)
[2018-10-15] MEDS ORDERED: ONDANSETRON 4 MG/2 ML VIAL ONE (17:17)
[2018-10-15] MEDS ORDERED: fentaNYL 100 MCG/2 ML VIAL ONE (17:17)
[2018-10-15] MEDS ORDERED: PROPOFOL 200 MG/20 ML VIAL IV ONE (17:17)
[2018-10-15] MEDS ORDERED: DEXAMETHASONE 10 MG/1 ML VIAL ONE (17:17)
[2018-10-15] MEDS: PIPERACILLIN/TAZOBACTAM 3,375 MG in SODIUM CHLORIDE 0.9% 100 ML IV SCH (21:05)
[2018-10-15] MEDS: ATORVASTATIN 40 MG TABLET PO SCH ×2 (21:17→21:26)
[2018-10-15] MEDS: LENALIDOMIDE 20 MG PO SCH (21:58)
[2018-10-16] MEDS: SODIUM CHLORIDE 0.9% 1,000 ML IV SCH ×3 (03:29→20:57)
[2018-10-16 04:03] LABS: Hematocrit 22.9 VOL% (35.7-47.0); Immature Granulocytes % 6.2 %; Immature Granulocytes Absolute 0.22 #; Lymphocytes # 0.8 10*3/uL (1.4-4.0); Lymphocytes % 21.6 % (21.3-54.2); Mean Corpuscular HGB Conc 31.9 GM/DL (32-36); Mean Corpuscular Hemoglobin 31 PG (27-34); Mean Corpuscular Volume 96.2 FL (87-102); Mean Platelet Volume 10.6 FL (9.6-12.0); Monocytes # 0.4 10*3/uL (0.11-0.8); Monocytes % 10.4 % (1.7-12.7); Neutrophils # 2.2 10*3/uL (1.4-7.4); Neutrophils % 61.8 % (38.7-73.9); Platelet Count 62 T/CUMM (130-400); Red Cell Distribution Width 16.7 % (9.3-17.3); White Blood Count 3.6 T/CUMM (4-12)
[2018-10-16 04:12] LABS: Hemoglobin 7.3 GM/DL (12.0-16.0); Red Blood Count 2.38 MC/CUMM (3.8-5.5)
[2018-10-16] MEDS: PIPERACILLIN/TAZOBACTAM 3,375 MG in SODIUM CHLORIDE 0.9% 100 ML IV SCH ×3 (04:28→20:28)
[2018-10-16 04:38] LABS: Albumin 2.1 G/DL (3.4-5.0); Bilirubin,Total 0.4 MG/DL (0.2-1.0); Calcium 6.9 MG/DL (8.5-10.1); Free T4 (Free Thyroxine) 1.07 NG/DL (0.76-1.46); Osmolality,Calculated 281.4 MOS/KG (273-304); Potassium 4.5 MMOL/L (3.5-5.1); Thyroid Stimulating Hormone 0.063 uIU/ml (0.358-3.74); Total Protein 6.3 G/DL (6.4-8.3)
[2018-10-16 04:41] LABS: Acanthocytes Few; Band Neutrophils 6 % (0-10); Lymphocytes 21 % (20-55); Metamyelocytes 2 %; Platelet Estimate Decreased; Segmented Neutrophils 61 % (50-85); Total Cells Counted 100
[2018-10-16 04:42] LABS: Anisocytosis 1+; Macrocytosis 1+
[2018-10-16] MEDS: CEFTAROLINE 600 MG in SODIUM CHLORIDE 0.9% 100 ML IV SCH ×2 (05:39→18:34)
[2018-10-16] MEDS: HYDROmorphone 2 MG/1 ML VIAL IV PRN (05:59)
[2018-10-16] MEDS: POTASSIUM CHLORIDE 20 MEQ TABLET PO SCH ×2 (09:52→17:24)
[2018-10-16] MEDS: FILGRASTIM-SNDZ 300 MCG/0.5 ML SYRINGE SUBCUT SCH (09:53)
[2018-10-16] MEDS: CETIRIZINE 10 MG TABLET PO SCH (09:53)
[2018-10-16] MEDS: MULTIVITAMIN (CENTRUM) TABLET PO SCH (09:53)
[2018-10-16] MEDS: MULTIVITAMIN (OCUVITE) TABLET PO SCH (09:53)
[2018-10-16] MEDS: PANTOPRAZOLE 40 MG TABLET PO SCH (09:53)
[2018-10-16] MEDS: MAGNESIUM CHLORIDE 64 MG TABLET PO SCH (09:53)
[2018-10-16] MEDS: CALCIUM (CITRATE)/VITAMIN D 200 MG-125 UNIT TABLET PO SCH (09:53)
[2018-10-16] MEDS: ASPIRIN EC 81 MG TABLET PO SCH (09:53)
[2018-10-16] MEDS: DOCUSATE SODIUM 100 MG CAPSULE PO SCH ×2 (09:54→20:57)
[2018-10-16] MEDS: BACITRACIN OINT 0.9 GM PACK TOP SCH (09:54)
[2018-10-16] MEDS ORDERED: SODIUM CHLORIDE 0.9% 1,000 ML IV PRN (11:18)
[2018-10-16 12:17] LABS: Basophils % 0.2 % (0.0-0.8); Hematocrit 23.8 VOL% (35.7-47.0); Immature Granulocytes % 8.2 %; Immature Granulocytes Absolute 0.36 #; Lymphocytes # 0.8 10*3/uL (1.4-4.0); Lymphocytes % 17.2 % (21.3-54.2); Mean Corpuscular HGB Conc 31.9 GM/DL (32-36); Mean Corpuscular Hemoglobin 31 PG (27-34); Mean Corpuscular Volume 97.1 FL (87-102); Mean Platelet Volume 10.6 FL (9.6-12.0); Monocytes # 0.4 10*3/uL (0.11-0.8); Monocytes % 7.9 % (1.7-12.7); Neutrophils # 2.9 10*3/uL (1.4-7.4); Neutrophils % 66.5 % (38.7-73.9); Red Blood Count 2.45 MC/CUMM (3.8-5.5); Red Cell Distribution Width 16.8 % (9.3-17.3); White Blood Count 4.4 T/CUMM (4-12)
[2018-10-16 12:18] LABS: Hemoglobin 7.6 GM/DL (12.0-16.0); Platelet Count 72 T/CUMM (130-400)
[2018-10-16 12:39] LABS: Band Neutrophils 2 % (0-10); Eosinophils 1 % (0-10); Lymphocytes 9 % (20-55); Platelet Estimate Decreased; Segmented Neutrophils 79 % (50-85); Total Cells Counted 100
[2018-10-16 12:40] LABS: Hypochromasia 1+; Macrocytosis Slight; Ovalocytes Slight
[2018-10-16] MEDS: ATORVASTATIN 40 MG TABLET PO SCH (20:27)
[2018-10-16] MEDS: LENALIDOMIDE 20 MG PO SCH (20:57)
[2018-10-17] MEDS: SODIUM CHLORIDE 0.9% 1,000 ML IV SCH ×2 (03:14→17:00)
[2018-10-17] MEDS: PIPERACILLIN/TAZOBACTAM 3,375 MG in SODIUM CHLORIDE 0.9% 100 ML IV SCH ×3 (04:01→20:23)
[2018-10-17 06:17] LABS: Basophils % 0.2 % (0.0-0.8); Eosinophils % 0.4 % (0.00-10.9); Hemoglobin 7.8 GM/DL (12.0-16.0); Immature Granulocytes Absolute 0.45 #; Lymphocytes # 0.7 10*3/uL (1.4-4.0); Lymphocytes % 14.6 % (21.3-54.2); Mean Corpuscular HGB Conc 32.5 GM/DL (32-36); Mean Corpuscular Hemoglobin 31 PG (27-34); Mean Corpuscular Volume 96.4 FL (87-102); Mean Platelet Volume 10.9 FL (9.6-12.0); Monocytes # 0.4 10*3/uL (0.11-0.8); Monocytes % 9.1 % (1.7-12.7); Neutrophils % 65.7 % (38.7-73.9); Red Blood Count 2.49 MC/CUMM (3.8-5.5); Red Cell Distribution Width 16.8 % (9.3-17.3); White Blood Count 4.5 T/CUMM (4-12)
[2018-10-17 06:21] LABS: Platelet Count 64 T/CUMM (130-400)
[2018-10-17 06:47] LABS: Band Neutrophils 6 % (0-10); Lymphocytes 14 % (20-55); Metamyelocytes 3 %; Myelocytes 1 %; Platelet Estimate Decreased; Segmented Neutrophils 70 % (50-85); Total Cells Counted 100
[2018-10-17 06:48] LABS: Hypochromasia Slight
[2018-10-17 08:15] LABS: Calcium 7.2 MG/DL (8.5-10.1)
[2018-10-17] MEDS: CEFTAROLINE 600 MG in SODIUM CHLORIDE 0.9% 100 ML IV SCH (09:03)
[2018-10-17] MEDS: CALCIUM (CITRATE)/VITAMIN D 200 MG-125 UNIT TABLET PO SCH (09:05)
[2018-10-17] MEDS: CETIRIZINE 10 MG TABLET PO SCH (09:05)
[2018-10-17] MEDS: POTASSIUM CHLORIDE 20 MEQ TABLET PO SCH ×2 (09:05→17:00)
[2018-10-17] MEDS: MULTIVITAMIN (OCUVITE) TABLET PO SCH (09:05)
[2018-10-17] MEDS: DOCUSATE SODIUM 100 MG CAPSULE PO SCH ×2 (09:05→20:26)
[2018-10-17] MEDS: MAGNESIUM CHLORIDE 64 MG TABLET PO SCH (09:05)
[2018-10-17] MEDS: ASPIRIN EC 81 MG TABLET PO SCH (09:05)
[2018-10-17] MEDS: PANTOPRAZOLE 40 MG TABLET PO SCH (09:05)
[2018-10-17] MEDS: MULTIVITAMIN (CENTRUM) TABLET PO SCH (09:05)
[2018-10-17 09:06] LABS: HIV Antigen/Antibody Result Nonreactive (Nonreactive); Hepatitis A Ab IgM Quant < 0.02 Index; Hepatitis A Ab IgM Result Negative (Negative); Hepatitis B Core IgM Quant 0.18 Index; Hepatitis B Core IgM Result Negative (Negative); Hepatitis B Surface Ag Quant < 0.10 Index; Hepatitis B Surface Ag Result Negative (Negative); Hepatitis C Virus Ab Quant 0.02 Index; Hepatitis C Virus Ab Result Negative (Negative)
[2018-10-17] MEDS: FILGRASTIM-SNDZ 300 MCG/0.5 ML SYRINGE SUBCUT SCH (09:08)
[2018-10-17] MEDS: BACITRACIN OINT 0.9 GM PACK TOP SCH (09:08)
[2018-10-17] MEDS ORDERED: LOPERAMIDE 2 MG CAPSULE PO PRN (17:49)
[2018-10-17] MEDS ORDERED: MYLANTA/LIDO VISC 2:1 300 ML BOTTLE SWISH/SWAL PRN (17:49)
[2018-10-17] MEDS ORDERED: MYLANTA/LIDO VISC 2:1 300 ML BOTTLE SWISH/SPIT PRN (17:49)
[2018-10-17] MEDS ORDERED: MAGNESIUM HYDROXIDE SUSP 30 ML UDCUP PO PRN (17:49)
[2018-10-17] MEDS ORDERED: LACTULOSE 20 GM/30 ML UDCUP PO PRN (17:49)
[2018-10-17] MEDS ORDERED: diphenhydrAMINE CAP 25 MG CAPSULE PO PRN (17:49)
[2018-10-17] MEDS ORDERED: ALPRAZolam 0.25 MG TABLET PO PRN (17:49)
[2018-10-17] MEDS ORDERED: TEMAZEPAM 7.5 MG CAPSULE PO PRN (17:49)
[2018-10-17] MEDS ORDERED: chlorproMAZINE INJ 25 MG in SODIUM CHLORIDE 0.9% 100 ML IV PRN (17:49)
[2018-10-17] MEDS ORDERED: traMADol 50 MG TABLET PO PRN (17:49)
[2018-10-17] MEDS ORDERED: chlorproMAZINE INJ 50 MG in SODIUM CHLORIDE 0.9% 100 ML IV PRN (17:49)
[2018-10-17] MEDS ORDERED: ONDANSETRON 4 MG/2 ML VIAL IV PRN (17:49)
[2018-10-17] MEDS ORDERED: ALUMINUM/MAGNES/SIMETH MAX STR 30 ML UDCUP PO PRN (17:49)
[2018-10-17] MEDS ORDERED: chlorproMAZINE 25 MG TABLET PO PRN (17:49)
[2018-10-17] MEDS ORDERED: PROMETHAZINE INJ 25 MG in SODIUM CHLORIDE 0.9% 50 ML IV PRN (17:49)
[2018-10-17] MEDS ORDERED: guaiFENesin 200 MG/10 ML UDCUP PO PRN (17:49)
[2018-10-17] MEDS ORDERED: BENZTROPINE 2 MG/2 ML AMP IV PRN (17:49)
[2018-10-17] MEDS: LOPERAMIDE 2 MG CAPSULE PO PRN (18:02)
[2018-10-17] MEDS: ATORVASTATIN 40 MG TABLET PO SCH (20:24)
[2018-10-17] MEDS: LENALIDOMIDE 20 MG PO SCH (20:26)
[2018-10-17] MEDS: HYDROmorphone 2 MG/1 ML VIAL IV PRN (21:16)
[2018-10-18] MEDS: CEFTAROLINE 600 MG in SODIUM CHLORIDE 0.9% 100 ML IV SCH ×2 (01:13→14:26)
[2018-10-18] MEDS: PIPERACILLIN/TAZOBACTAM 3,375 MG in SODIUM CHLORIDE 0.9% 100 ML IV SCH ×3 (04:34→20:49)
[2018-10-18 04:47] LABS: Basophils % 0.5 % (0.0-0.8); Eosinophils # 0.1 10*3/uL (0.0-0.87); Eosinophils % 1.3 % (0.00-10.9); Hematocrit 25.1 VOL% (35.7-47.0); Immature Granulocytes % 0.7 %; Immature Granulocytes Absolute 0.04 #; Lymphocytes # 1.1 10*3/uL (1.4-4.0); Lymphocytes % 17.4 % (21.3-54.2); Mean Corpuscular HGB Conc 31.9 GM/DL (32-36); Mean Corpuscular Hemoglobin 31 PG (27-34); Mean Corpuscular Volume 96.9 FL (87-102); Mean Platelet Volume 10.9 FL (9.6-12.0); Monocytes # 0.6 10*3/uL (0.11-0.8); Monocytes % 9.9 % (1.7-12.7); Neutrophils # 4.3 10*3/uL (1.4-7.4); Neutrophils % 70.2 % (38.7-73.9); Platelet Count 64 T/CUMM (130-400); Red Blood Count 2.59 MC/CUMM (3.8-5.5); Red Cell Distribution Width 17.1 % (9.3-17.3); White Blood Count 6.1 T/CUMM (4-12)
[2018-10-18 05:19] LABS: Calcium 7.6 MG/DL (8.5-10.1); Osmolality,Calculated 280.1 MOS/KG (273-304)
[2018-10-18 05:30] LABS: Anisocytosis 1+; Band Neutrophils 14 % (0-10); Eosinophils 4 % (0-10); Lymphocytes 22 % (20-55); Platelet Estimate Decreased; Segmented Neutrophils 52 % (50-85); Total Cells Counted 100
[2018-10-18 05:31] LABS: Tear Drop Cells Few
[2018-10-18] MEDS: SODIUM CHLORIDE 0.9% 1,000 ML IV SCH ×3 (08:43→14:26)
[2018-10-18] MEDS: CETIRIZINE 10 MG TABLET PO SCH (09:22)
[2018-10-18] MEDS: MAGNESIUM CHLORIDE 64 MG TABLET PO SCH (09:22)
[2018-10-18] MEDS: POTASSIUM CHLORIDE 20 MEQ TABLET PO SCH ×2 (09:22→17:25)
[2018-10-18] MEDS: CALCIUM (CITRATE)/VITAMIN D 200 MG-125 UNIT TABLET PO SCH (09:22)
[2018-10-18] MEDS: BACITRACIN OINT 0.9 GM PACK TOP SCH (09:23)
[2018-10-18] MEDS: MULTIVITAMIN (OCUVITE) TABLET PO SCH (09:23)
[2018-10-18] MEDS: MULTIVITAMIN (CENTRUM) TABLET PO SCH (09:23)
[2018-10-18] MEDS: ASPIRIN EC 81 MG TABLET PO SCH (09:23)
[2018-10-18] MEDS: PANTOPRAZOLE 40 MG TABLET PO SCH (09:23)
[2018-10-18] MEDS: DOCUSATE SODIUM 100 MG CAPSULE PO SCH ×2 (09:25→22:36)
[2018-10-18] MEDS: FILGRASTIM-SNDZ 300 MCG/0.5 ML SYRINGE SUBCUT SCH (14:26)
[2018-10-18] MEDS: LOPERAMIDE 2 MG CAPSULE PO PRN (14:37)
[2018-10-18] MEDS ORDERED: MAGNESIUM SULF RIDER 2 GM in PREMIX 1 EACH IV ONE (17:08)
[2018-10-18] MEDS: SKIN HEALING OINT (AQUAPHOR) 50 GM TUBE TOP SCH (20:45)
[2018-10-18] MEDS: ATORVASTATIN 40 MG TABLET PO SCH (20:45)
[2018-10-18] MEDS: MAGNESIUM SULF INJ 2 GM in SODIUM CHLORIDE 0.9% 1,000 ML IV SCH (20:49)
[2018-10-18] MEDS: LENALIDOMIDE 20 MG PO SCH (22:36)
[2018-10-19] MEDS: PIPERACILLIN/TAZOBACTAM 3,375 MG in SODIUM CHLORIDE 0.9% 100 ML IV SCH ×3 (04:10→17:19)
[2018-10-19 06:34] LABS: Basophils % 0.6 % (0.0-0.8); Eosinophils # 0.1 10*3/uL (0.0-0.87); Eosinophils % 1.8 % (0.00-10.9); Hemoglobin 7.9 GM/DL (12.0-16.0); Immature Granulocytes % 1.4 %; Immature Granulocytes Absolute 0.07 #; Lymphocytes % 20.5 % (21.3-54.2); Mean Corpuscular HGB Conc 31.6 GM/DL (32-36); Mean Corpuscular Hemoglobin 31 PG (27-34); Mean Corpuscular Volume 97.7 FL (87-102); Mean Platelet Volume 10.8 FL (9.6-12.0); Monocytes # 0.8 10*3/uL (0.11-0.8); Monocytes % 15.6 % (1.7-12.7); NRBC # 0.02 10*3/uL; Neutrophils % 60.1 % (38.7-73.9); Platelet Count 70 T/CUMM (130-400); Red Blood Count 2.56 MC/CUMM (3.8-5.5); Red Cell Distribution Width 16.9 % (9.3-17.3); White Blood Count 4.9 T/CUMM (4-12)
[2018-10-19 06:40] LABS: Albumin 2.1 G/DL (3.4-5.0); Bilirubin,Total 0.6 MG/DL (0.2-1.0); Calcium 7.7 MG/DL (8.5-10.1); Potassium 3.8 MMOL/L (3.5-5.1); Total Protein 6.3 G/DL (6.4-8.3)
[2018-10-19 07:07] LABS: Band Neutrophils 3 % (0-10); Eosinophils 3 % (0-10); Lymphocytes 23 % (20-55); Segmented Neutrophils 57 % (50-85); Total Cells Counted 100
[2018-10-19 07:10] LABS: Platelet Estimate Decreased
[2018-10-19 07:11] LABS: Hypochromasia 1+; Ovalocytes 1+; Reactive Lymphocytes 1+
[2018-10-19] MEDS: MULTIVITAMIN (CENTRUM) TABLET PO SCH (11:08)
[2018-10-19] MEDS: MULTIVITAMIN (OCUVITE) TABLET PO SCH (11:08)
[2018-10-19] MEDS: SKIN HEALING OINT (AQUAPHOR) 50 GM TUBE TOP SCH ×3 (11:08→21:04)
[2018-10-19] MEDS: PANTOPRAZOLE 40 MG TABLET PO SCH (11:08)
[2018-10-19] MEDS: POTASSIUM CHLORIDE 20 MEQ TABLET PO SCH ×2 (11:08→17:17)
[2018-10-19] MEDS: ASPIRIN EC 81 MG TABLET PO SCH (11:08)
[2018-10-19] MEDS: MAGNESIUM CHLORIDE 64 MG TABLET PO SCH (11:09)
[2018-10-19] MEDS: CALCIUM (CITRATE)/VITAMIN D 200 MG-125 UNIT TABLET PO SCH (11:09)
[2018-10-19] MEDS: CETIRIZINE 10 MG TABLET PO SCH (11:09)
[2018-10-19] MEDS: FILGRASTIM-SNDZ 300 MCG/0.5 ML SYRINGE SUBCUT SCH (11:09)
[2018-10-19] MEDS: DOCUSATE SODIUM 100 MG CAPSULE PO SCH ×2 (11:09→21:04)
[2018-10-19] MEDS: MAGNESIUM SULF INJ 2 GM in SODIUM CHLORIDE 0.9% 1,000 ML IV SCH ×2 (16:24→22:15)
[2018-10-19] MEDS: ATORVASTATIN 40 MG TABLET PO SCH (21:03)
[2018-10-19] MEDS: LENALIDOMIDE 20 MG PO SCH (21:04)
[2018-10-20] MEDS: PIPERACILLIN/TAZOBACTAM 3,375 MG in SODIUM CHLORIDE 0.9% 100 ML IV SCH ×3 (02:31→17:31)
[2018-10-20 04:45] LABS: Basophils # 0.1 10*3/uL (0.0-0.2); Basophils % 1.1 % (0.0-0.8); Eosinophils # 0.2 10*3/uL (0.0-0.87); Eosinophils % 2.6 % (0.00-10.9); Hematocrit 25.3 VOL% (35.7-47.0); Hemoglobin 7.9 GM/DL (12.0-16.0); Immature Granulocytes % 1.9 %; Immature Granulocytes Absolute 0.11 #; Lymphocytes # 0.9 10*3/uL (1.4-4.0); Lymphocytes % 16.3 % (21.3-54.2); Mean Corpuscular HGB Conc 31.2 GM/DL (32-36); Mean Corpuscular Hemoglobin 31 PG (27-34); Mean Corpuscular Volume 98.8 FL (87-102); Monocytes % 17.7 % (1.7-12.7); NRBC # 0.02 10*3/uL; Neutrophils # 3.4 10*3/uL (1.4-7.4); Neutrophils % 60.4 % (38.7-73.9); Platelet Count 73 T/CUMM (130-400); Red Blood Count 2.56 MC/CUMM (3.8-5.5); Red Cell Distribution Width 16.9 % (9.3-17.3); White Blood Count 5.7 T/CUMM (4-12)
[2018-10-20 05:24] LABS: Calcium 8.1 MG/DL (8.5-10.1); Osmolality,Calculated 281.1 MOS/KG (273-304); Potassium 3.6 MMOL/L (3.5-5.1)
[2018-10-20 05:31] LABS: Atypical Lymphocytes Few; Band Neutrophils 5 % (0-10); Eosinophils 1 % (0-10); Hypochromasia 1+; Lymphocytes 12 % (20-55); Segmented Neutrophils 68 % (50-85); Total Cells Counted 100
[2018-10-20 05:32] LABS: Macrocytosis 1+; Polychromasia Slight
[2018-10-20 05:33] LABS: Platelet Estimate Decreased
[2018-10-20] MEDS: MULTIVITAMIN (OCUVITE) TABLET PO SCH (08:17)
[2018-10-20] MEDS: CALCIUM (CITRATE)/VITAMIN D 200 MG-125 UNIT TABLET PO SCH (08:17)
[2018-10-20] MEDS: ASPIRIN EC 81 MG TABLET PO SCH (08:18)
[2018-10-20] MEDS: DOCUSATE SODIUM 100 MG CAPSULE PO SCH ×2 (08:18→20:12)
[2018-10-20] MEDS: PANTOPRAZOLE 40 MG TABLET PO SCH (08:18)
[2018-10-20] MEDS: SKIN HEALING OINT (AQUAPHOR) 50 GM TUBE TOP SCH ×3 (08:18→20:15)
[2018-10-20] MEDS: MULTIVITAMIN (CENTRUM) TABLET PO SCH (08:18)
[2018-10-20] MEDS: FILGRASTIM-SNDZ 300 MCG/0.5 ML SYRINGE SUBCUT SCH (08:18)
[2018-10-20] MEDS: CETIRIZINE 10 MG TABLET PO SCH (08:18)
[2018-10-20] MEDS: POTASSIUM CHLORIDE 20 MEQ TABLET PO SCH ×2 (08:18→17:32)
[2018-10-20] MEDS: MAGNESIUM CHLORIDE 64 MG TABLET PO SCH (08:18)
[2018-10-20] MEDS: MAGNESIUM SULF INJ 2 GM in SODIUM CHLORIDE 0.9% 1,000 ML IV SCH ×2 (20:09→23:57)
[2018-10-20] MEDS: ATORVASTATIN 40 MG TABLET PO SCH (20:12)
[2018-10-20] MEDS: LENALIDOMIDE 20 MG PO SCH (20:17)
[2018-10-21] MEDS: PIPERACILLIN/TAZOBACTAM 3,375 MG in SODIUM CHLORIDE 0.9% 100 ML IV SCH ×2 (01:37→08:31)
[2018-10-21 05:04] LABS: Basophils # 0.1 10*3/uL (0.0-0.2); Eosinophils # 0.2 10*3/uL (0.0-0.87); Eosinophils % 1.9 % (0.00-10.9); Hematocrit 24.8 VOL% (35.7-47.0); Hemoglobin 7.9 GM/DL (12.0-16.0); Immature Granulocytes % 6.9 %; Immature Granulocytes Absolute 0.63 #; Lymphocytes # 1.3 10*3/uL (1.4-4.0); Lymphocytes % 14.7 % (21.3-54.2); Mean Corpuscular HGB Conc 31.9 GM/DL (32-36); Mean Corpuscular Hemoglobin 31 PG (27-34); Mean Corpuscular Volume 97.6 FL (87-102); Mean Platelet Volume 10.3 FL (9.6-12.0); Monocytes # 1.2 10*3/uL (0.11-0.8); Monocytes % 12.8 % (1.7-12.7); NRBC # 0.03 10*3/uL; Neutrophils # 5.7 10*3/uL (1.4-7.4); Neutrophils % 62.7 % (38.7-73.9); Platelet Count 78 T/CUMM (130-400); Red Blood Count 2.54 MC/CUMM (3.8-5.5); White Blood Count 9.1 T/CUMM (4-12)
[2018-10-21 05:45] LABS: Band Neutrophils 3 % (0-10); Eosinophils 2 % (0-10); Lymphocytes 12 % (20-55); Metamyelocytes 1 %; Nucleated Red Blood Cells 1 (0-5); Platelet Estimate Decreased; Polychromasia Few; Segmented Neutrophils 75 % (50-85); Total Cells Counted 100
[2018-10-21 05:46] LABS: Hypochromasia Slight
[2018-10-21] MEDS: POTASSIUM CHLORIDE 20 MEQ TABLET PO SCH (08:29)
[2018-10-21] MEDS: CALCIUM (CITRATE)/VITAMIN D 200 MG-125 UNIT TABLET PO SCH (08:29)
[2018-10-21] MEDS: MULTIVITAMIN (OCUVITE) TABLET PO SCH (08:30)
[2018-10-21] MEDS: CETIRIZINE 10 MG TABLET PO SCH (08:30)
[2018-10-21] MEDS: FILGRASTIM-SNDZ 300 MCG/0.5 ML SYRINGE SUBCUT SCH (08:30)
[2018-10-21] MEDS: ASPIRIN EC 81 MG TABLET PO SCH (08:30)
[2018-10-21] MEDS: MULTIVITAMIN (CENTRUM) TABLET PO SCH (08:30)
[2018-10-21] MEDS: MAGNESIUM CHLORIDE 64 MG TABLET PO SCH (08:30)
[2018-10-21] MEDS: PANTOPRAZOLE 40 MG TABLET PO SCH (08:30)
[2018-10-21] MEDS: DOCUSATE SODIUM 100 MG CAPSULE PO SCH (08:31)
[2018-10-21] MEDS: SKIN HEALING OINT (AQUAPHOR) 50 GM TUBE TOP SCH ×2 (08:31→16:00)
[2018-10-21 11:43] VITALS: BP 111/53
[2018-10-22 09:52] LABS: Albumin (SPE) 3.3 G/DL (3.2-5.3); Albumin (SPE) Rel % 49.8 %; Alpha 1 (SPE) 0.3 G/DL (0.1-0.4); Alpha 1 (SPE) Rel % 4.4 %; Alpha 2 (SPE) 0.7 G/DL (0.4-1.0); Alpha 2 (SPE) Rel % 10.1 %; Beta (SPE) 0.7 G/DL (0.5-1.1); Beta (SPE) Rel % 10.3 %; Gamma (SPE) 1.7 G/DL (0.7-1.7); Total Protein (Chem) 6.6 G/DL (6.4-8.3)
[2018-10-22 09:54] LABS: Gamma (SPE) Rel % 25.4 %
== END 2018-10-21 15:15 | disposition home health service (06) | DRG 593 ==
LOC: N.ED 10:34 → N.EDINP 12:11 → N.4E 15:05
PROVIDERS: ADMIT Family Medicine; ATTEND Family Medicine

== ENCOUNTER 2019-11-12 20:20 | Inpatient (IN) ==
[2019-11-12] MEDS ORDERED: ACETAMINOPHEN 650 MG SUPP RECTAL STA (20:52)
[2019-11-12] MEDS ORDERED: SODIUM CHLORIDE 0.9% 1,000 ML IV STA (20:52)
[2019-11-12] MEDS ORDERED: ONDANSETRON 4 MG/2 ML VIAL IV STA (20:52)
[2019-11-12] MEDS ORDERED: PANTOPRAZOLE 40 MG VIAL IV STA (20:52)
[2019-11-12 21:29] LABS: Apearance,Urine CLOUDY (Clear); Bacteria,Urine Many /HPF (Few); Bilirubin,Urine Negative (Negative); Blood, Urine Moderate mg/dL (Negative); Glucose,Urine (UA) Negative (Negative); Hyaline Casts,Urine 12 /LPF (0-3); Ketones,Urine Negative (Negative); Mucus,Urine Occasional /LPF (Occasional); Nitrite,Urine Positive (Negative); Protein,Urine 100 MG/DL; RBC,Urine 7 /HPF (0-4); Squamous Epithelial Cell,Urine Occasional /HPF (0-10); Urine Color Amber (Yellow); Urine Specific Gravity 1.016 (1.001-1.035); Urine Urobilinogen < 2.0 EU/DL (0.2-1.0); WBC,Urine 16 /HPF (0-6)
[2019-11-12] MEDS ORDERED: cefTRIAXone 1,000 MG in SODIUM CHLORIDE 0.9% 100 ML IV STA (21:47)
[2019-11-12] MEDS ORDERED: ACETAMINOPHEN 325 MG TABLET ONE (21:50)
[2019-11-12 21:59] LABS: Basophils % 0.2 % (0.0-0.8); Eosinophils % 0.1 % (0.00-10.9); Hematocrit 37.6 VOL% (35.7-47.0); Hemoglobin 12.2 GM/DL (12.0-16.0); Immature Granulocytes % 1.1 %; Immature Granulocytes Absolute 0.09 #; Lymphocytes # 0.3 10*3/uL (1.4-4.0); Lymphocytes % 3.8 % (21.3-54.2); Mean Corpuscular HGB Conc 32.4 GM/DL (32-36); Mean Corpuscular Volume 101.1 FL (87-102); Mean Platelet Volume 9.5 FL (9.6-12.0); Monocytes % 4.8 % (1.7-12.7); Platelet Count 187 T/CUMM (130-400); Red Blood Count 3.72 MC/CUMM (3.8-5.5); Red Cell Distribution Width 13.6 % (9.3-17.3); White Blood Count 8.2 T/CUMM (4-12)
[2019-11-12] MEDS ORDERED: ACETAMINOPHEN 325 MG TABLET PO ONE (22:16)
[2019-11-12 22:25] LABS: Alanine Aminotransferase 45 U/L (13-56); Albumin 3.5 G/DL (3.4-5.0); Alkaline Phosphatase 75 U/L (45-117); Amylase 139 U/L (25-115); Aspartate Amino Transferase 27 U/L (0-37); Blood Urea Nitrogen 30 MG/DL (7-18); Calcium 8.4 MG/DL (8.5-10.1); Estimated Glom Filtration Rate 35 ML/MIN; Glucose 318 MG/DL (74-106); Osmolality,Calculated 294.5 MOS/KG (273-304); Total Protein 6.6 G/DL (6.4-8.3)
[2019-11-12] MEDS ORDERED: SODIUM CHLORIDE 0.9% 1,950 ML IV ONE (22:31)
[2019-11-12] MEDS ORDERED: MAGNESIUM SULF RIDER 2 GM in PREMIX 1 EACH IV STA (23:16)
[2019-11-12] MEDS: PIPERACILLIN/TAZOBACTAM 3,375 MG in SODIUM CHLORIDE 0.9% 100 ML IV SCH (23:30)
[2019-11-13 00:18] LABS: Anisocytosis 1+; Band Neutrophils 86 % (0-10); Eosinophils 3 % (0-10); Lymphocytes 6 % (20-55); Platelet Estimate Adequate; Total Cells Counted 100
[2019-11-13] MEDS ORDERED: ACETAMINOPHEN 325 MG TABLET PO PRN ×2 (00:23)
[2019-11-13] MEDS ORDERED: DEXTROSE 50% 25 GM/50 ML VIAL IV PRN (00:23)
[2019-11-13] MEDS ORDERED: GLUCAGON 1 MG VIAL IM PRN (00:23)
[2019-11-13] MEDS ORDERED: MORPHINE 4 MG/1 ML VIAL IV PRN (00:23)
[2019-11-13] MEDS ORDERED: ONDANSETRON 4 MG/2 ML VIAL IV PRN (00:23)
[2019-11-13] MEDS ORDERED: MAGNESIUM SULF RIDER 2 GM in PREMIX 1 EACH IV STA (00:37)
[2019-11-13] MEDS: INSULIN REGULAR 100 UNIT/ML SUBCUT SCH ×4 (00:50→18:34)
[2019-11-13 02:19] LABS: Basophils % 0.1 % (0.0-0.8); Eosinophils % 0.1 % (0.00-10.9); Hemoglobin 9.4 GM/DL (12.0-16.0); Immature Granulocytes % 0.8 %; Immature Granulocytes Absolute 0.09 #; Lymphocytes # 0.4 10*3/uL (1.4-4.0); Lymphocytes % 3.7 % (21.3-54.2); Mean Corpuscular HGB Conc 31.3 GM/DL (32-36); Mean Corpuscular Volume 104.2 FL (87-102); Mean Platelet Volume 8.8 FL (9.6-12.0); Monocytes % 17.9 % (1.7-12.7); Neutrophils % 77.4 % (38.7-73.9); Platelet Count 141 T/CUMM (130-400); Red Blood Count 2.88 MC/CUMM (3.8-5.5); Red Cell Distribution Width 13.7 % (9.3-17.3); White Blood Count 11.1 T/CUMM (4-12)
[2019-11-13] MEDS: SODIUM CHLORIDE 0.9% 1,000 ML IV SCH ×3 (02:29→18:38)
[2019-11-13 02:32] LABS: Partial Thromboplastin Time 26.8 SECS (20.8-36.0)
[2019-11-13 02:42] LABS: Alanine Aminotransferase 33 U/L (13-56); Albumin 2.6 G/DL (3.4-5.0); Alkaline Phosphatase 52 U/L (45-117); Aspartate Amino Transferase 20 U/L (0-37); Bilirubin,Total < 0.39 MG/DL (0.2-1.0); Blood Urea Nitrogen 27 MG/DL (7-18); Calcium 6.9 MG/DL (8.5-10.1); Estimated Glom Filtration Rate 42 ML/MIN; Glucose 260 MG/DL (74-106); Osmolality,Calculated 299.8 MOS/KG (273-304); Total Protein 4.9 G/DL (6.4-8.3)
[2019-11-13 04:35] LABS: Anisocytosis 1+; Band Neutrophils 7 % (0-10); Lymphocytes 7 % (20-55); Platelet Estimate Adequate; Segmented Neutrophils 80 % (50-85); Total Cells Counted 100
[2019-11-13] MEDS: PIPERACILLIN/TAZOBACTAM 3,375 MG in SODIUM CHLORIDE 0.9% 100 ML IV SCH ×3 (06:19→23:43)
[2019-11-13] MEDS: CETIRIZINE 10 MG TABLET PO SCH (08:55)
[2019-11-13] MEDS: CALCIUM (CITRATE)/VITAMIN D 200 MG-125 UNIT TABLET PO SCH (08:55)
[2019-11-13] MEDS: ASPIRIN EC 81 MG TABLET PO SCH (08:56)
[2019-11-13] MEDS: PANTOPRAZOLE 40 MG VIAL IV SCH (08:56)
[2019-11-13] MEDS: MULTIVITAMIN (CENTRUM) TABLET PO SCH (08:56)
[2019-11-13] MEDS: DOCUSATE SODIUM 100 MG CAPSULE PO SCH ×2 (08:56→22:15)
[2019-11-13] MEDS: POTASSIUM CHLORIDE 20 MEQ TABLET PO SCH ×2 (08:57→17:35)
[2019-11-13] MEDS: MULTIVITAMIN (OCUVITE) TABLET PO SCH (08:57)
[2019-11-13] MEDS: MAGNESIUM CHLORIDE 64 MG TABLET PO SCH (08:57)
[2019-11-13] MEDS: APIXABAN 2.5 MG TABLET PO SCH ×2 (08:57→21:46)
[2019-11-13] MEDS ORDERED: NON-FORMULARY MEDICATION (Esomeprazole Magnesium 40 MG) PO SCH (09:00)
[2019-11-13] MEDS: ATORVASTATIN 40 MG TABLET PO SCH (21:46)
[2019-11-13] MEDS: valACYclovir 500 MG TABLET PO SCH (21:48)
[2019-11-14] MEDS: INSULIN REGULAR 100 UNIT/ML SUBCUT SCH ×5 (00:32→23:38)
[2019-11-14] MEDS: SODIUM CHLORIDE 0.9% 1,000 ML IV SCH ×4 (04:16→22:57)
[2019-11-14] MEDS: PIPERACILLIN/TAZOBACTAM 3,375 MG in SODIUM CHLORIDE 0.9% 100 ML IV SCH ×3 (06:31→23:06)
[2019-11-14] MEDS: MULTIVITAMIN (OCUVITE) TABLET PO SCH (09:16)
[2019-11-14] MEDS: MAGNESIUM CHLORIDE 64 MG TABLET PO SCH (09:16)
[2019-11-14] MEDS: MULTIVITAMIN (CENTRUM) TABLET PO SCH (09:16)
[2019-11-14] MEDS: CALCIUM (CITRATE)/VITAMIN D 200 MG-125 UNIT TABLET PO SCH (09:16)
[2019-11-14] MEDS: CETIRIZINE 10 MG TABLET PO SCH (09:16)
[2019-11-14] MEDS: PANTOPRAZOLE 40 MG VIAL IV SCH (09:17)
[2019-11-14] MEDS: ASPIRIN EC 81 MG TABLET PO SCH (09:17)
[2019-11-14] MEDS: DOCUSATE SODIUM 100 MG CAPSULE PO SCH ×2 (09:17→22:57)
[2019-11-14] MEDS: APIXABAN 2.5 MG TABLET PO SCH ×2 (09:17→22:14)
[2019-11-14] MEDS: POTASSIUM CHLORIDE 20 MEQ TABLET PO SCH ×2 (09:17→17:15)
[2019-11-14] MEDS: ATORVASTATIN 40 MG TABLET PO SCH (22:14)
[2019-11-14] MEDS: valACYclovir 500 MG TABLET PO SCH (22:15)
[2019-11-15] MEDS: SODIUM CHLORIDE 0.9% 1,000 ML IV SCH ×2 (02:55→19:06)
[2019-11-15 05:37] LABS: Calcium 7.1 MG/DL (8.5-10.1); Osmolality,Calculated 286.7 MOS/KG (273-304)
[2019-11-15 05:40] LABS: Basophils % 0.2 % (0.0-0.8); Eosinophils # 0.1 10*3/uL (0.0-0.87); Hemoglobin 8.5 GM/DL (12.0-16.0); Immature Granulocytes % 0.5 %; Immature Granulocytes Absolute 0.03 #; Lymphocytes # 0.7 10*3/uL (1.4-4.0); Lymphocytes % 11.7 % (21.3-54.2); Mean Corpuscular HGB Conc 31.5 GM/DL (32-36); Mean Corpuscular Volume 103.1 FL (87-102); Monocytes % 6.8 % (1.7-12.7); Neutrophils % 79.8 % (38.7-73.9); Platelet Count 150 T/CUMM (130-400); Red Blood Count 2.62 MC/CUMM (3.8-5.5); White Blood Count 6.2 T/CUMM (4-12)
[2019-11-15 06:20] LABS: Anisocytosis 1+; Band Neutrophils 5 % (0-10); Eosinophils 1 % (0-10); Lymphocytes 13 % (20-55); Macrocytosis Slight; Platelet Estimate Normal; Segmented Neutrophils 75 % (50-85); Total Cells Counted 100
[2019-11-15] MEDS: PIPERACILLIN/TAZOBACTAM 3,375 MG in SODIUM CHLORIDE 0.9% 100 ML IV SCH ×3 (06:23→23:20)
[2019-11-15] MEDS: INSULIN REGULAR 100 UNIT/ML SUBCUT SCH ×3 (06:27→17:40)
[2019-11-15] MEDS: MULTIVITAMIN (CENTRUM) TABLET PO SCH (09:30)
[2019-11-15] MEDS: POTASSIUM CHLORIDE 20 MEQ TABLET PO SCH ×2 (09:30→17:12)
[2019-11-15] MEDS: CETIRIZINE 10 MG TABLET PO SCH (09:30)
[2019-11-15] MEDS: MAGNESIUM CHLORIDE 64 MG TABLET PO SCH (09:30)
[2019-11-15] MEDS ORDERED: MAGNESIUM SULF RIDER 1 GM in PREMIX 1 EACH IV ONE (09:30)
[2019-11-15] MEDS: MULTIVITAMIN (OCUVITE) TABLET PO SCH (09:31)
[2019-11-15] MEDS: ASPIRIN EC 81 MG TABLET PO SCH (09:31)
[2019-11-15] MEDS: PANTOPRAZOLE 40 MG VIAL IV SCH (09:31)
[2019-11-15] MEDS: APIXABAN 2.5 MG TABLET PO SCH ×2 (09:31→21:31)
[2019-11-15] MEDS: DOCUSATE SODIUM 100 MG CAPSULE PO SCH ×2 (09:35→21:36)
[2019-11-15] MEDS: CALCIUM (CITRATE)/VITAMIN D 200 MG-125 UNIT TABLET PO SCH (09:35)
[2019-11-15] MEDS: ATORVASTATIN 40 MG TABLET PO SCH (21:31)
[2019-11-15] MEDS: valACYclovir 500 MG TABLET PO SCH (21:32)
[2019-11-16] MEDS: INSULIN REGULAR 100 UNIT/ML SUBCUT SCH ×3 (01:05→13:08)
[2019-11-16 06:24] LABS: Eosinophils # 0.1 10*3/uL (0.0-0.87); Eosinophils % 1.3 % (0.00-10.9); Hematocrit 27.5 VOL% (35.7-47.0); Hemoglobin 8.8 GM/DL (12.0-16.0); Immature Granulocytes % 0.7 %; Immature Granulocytes Absolute 0.03 #; Lymphocytes # 0.7 10*3/uL (1.4-4.0); Lymphocytes % 15.6 % (21.3-54.2); Mean Corpuscular Volume 101.1 FL (87-102); Mean Platelet Volume 9.5 FL (9.6-12.0); Monocytes % 8.6 % (1.7-12.7); Neutrophils % 73.8 % (38.7-73.9); Platelet Count 172 T/CUMM (130-400); Red Blood Count 2.72 MC/CUMM (3.8-5.5); Red Cell Distribution Width 13.7 % (9.3-17.3); White Blood Count 4.5 T/CUMM (4-12)
[2019-11-16] MEDS: SODIUM CHLORIDE 0.9% 1,000 ML IV SCH (06:41)
[2019-11-16] MEDS: PIPERACILLIN/TAZOBACTAM 3,375 MG in SODIUM CHLORIDE 0.9% 100 ML IV SCH (06:42)
[2019-11-16] MEDS ORDERED: cefTRIAXone 1,000 MG in SYRINGE 1 EACH IV SCH (07:00)
[2019-11-16] MEDS: PANTOPRAZOLE 40 MG VIAL IV SCH (08:15)
[2019-11-16] MEDS: CALCIUM (CITRATE)/VITAMIN D 200 MG-125 UNIT TABLET PO SCH (08:16)
[2019-11-16] MEDS: MAGNESIUM CHLORIDE 64 MG TABLET PO SCH (08:16)
[2019-11-16] MEDS: CETIRIZINE 10 MG TABLET PO SCH (08:17)
[2019-11-16] MEDS: ASPIRIN EC 81 MG TABLET PO SCH (08:17)
[2019-11-16] MEDS: APIXABAN 2.5 MG TABLET PO SCH (08:18)
[2019-11-16] MEDS: POTASSIUM CHLORIDE 20 MEQ TABLET PO SCH (08:18)
[2019-11-16] MEDS: MULTIVITAMIN (CENTRUM) TABLET PO SCH (08:18)
[2019-11-16] MEDS: MULTIVITAMIN (OCUVITE) TABLET PO SCH (08:18)
[2019-11-16] MEDS: DOCUSATE SODIUM 100 MG CAPSULE PO SCH (08:18)
[2019-11-16] MEDS ORDERED: TUBERCULIN SKIN TEST 0.1 ML SYRINGE INTRADERM ONE (09:00)
[2019-11-16 15:57] VITALS: BP 115/57
[2019-11-18] MEDS ORDERED: DEXAMETHASONE 4 MG TABLET PO SCH (09:00)
== END 2019-11-16 17:32 | disposition swing bed (61) | DRG 872 ==
LOC: N.ED 20:20 → N.EDINP 23:17 → N.TELEN 23:34
PROVIDERS: ADMIT Family Medicine; ATTEND Family Medicine

== ENCOUNTER 2021-07-27 07:04 | Inpatient (IN) ==
[2021-07-27] MEDS ORDERED: DEXAMETHASONE INJ 20 MG in SODIUM CHLORIDE 0.9% 50 ML IV ONE (07:45)
[2021-07-27] MEDS ORDERED: CARFILZOMIB IV ONE (08:00)
[2021-07-27] MEDS ORDERED: ACETAMINOPHEN 325 MG TABLET PO ONE (08:00)
[2021-07-27] MEDS ORDERED: SODIUM CHLORIDE 0.9% IV ONE ×2 (08:00)
[2021-07-27] MEDS ORDERED: diphenhydrAMINE 50 MG/1 ML VIAL IV ONE (08:00)
[2021-07-27] MEDS ORDERED: DARATUMUMAB IV ONE (08:00)
[2021-07-27 09:01] LABS: Basophils % 0.2 % (0.0-0.8); Hematocrit 23.4 VOL% (35.7-47.0); Hemoglobin 7.5 GM/DL (12.0-16.0); Immature Granulocytes % 5.6 %; Immature Granulocytes Absolute 0.25 #; Lymphocytes # 1.2 10*3/uL (1.4-4.0); Lymphocytes % 25.6 % (21.3-54.2); Mean Corpuscular HGB Conc 32.1 GM/DL (32-36); Mean Corpuscular Volume 93.2 FL (87-102); Monocytes % 25.3 % (1.7-12.7); NRBC # 0.02 10*3/uL; Neutrophils % 43.3 % (38.7-73.9); Platelet Count 53 T/CUMM (130-400); Red Blood Count 2.51 MC/CUMM (3.8-5.5); Red Cell Distribution Width 21.2 % (9.3-17.3); White Blood Count 4.5 T/CUMM (4-12)
[2021-07-27 09:19] LABS: Eosinophils 1 % (0-10); Lymphocytes 24 % (20-55); Platelet Estimate Decreased; Segmented Neutrophils 52 % (50-85); Total Cells Counted 100
[2021-07-27 09:20] LABS: Microcytosis 1+
[2021-07-27 09:21] LABS: Atypical Lymphocytes Few; Hypochromasia 1+
[2021-07-27] MEDS ORDERED: SODIUM CHLORIDE 0.9% 1,000 ML IV PRN ×2 (09:32→16:34)
[2021-07-27 09:46] LABS: Alanine Aminotransferase 12 U/L (13-56); Albumin 2.9 G/DL (3.4-5.0); Alkaline Phosphatase 53 U/L (45-117); Aspartate Amino Transferase 17 U/L (0-37); Blood Urea Nitrogen 17 MG/DL (7-18); Calcium 9.2 MG/DL (8.5-10.1); Carbon Dioxide 21 MMOL/L (21-32); Estimated Glom Filtration Rate 64 ML/MIN; Glucose 116 MG/DL (74-106); Immunoglobulin A < 31 MG/DL (70-400); Immunoglobulin G 2840 MG/DL (700-1600); Immunoglobulin M < 21 MG/DL (40-230); Osmolality,Calculated 277.7 MOS/KG (273-304); Potassium 3.9 MMOL/L (3.5-5.1); Sodium 138 MMOL/L (136-145); Total Protein 7.9 G/DL (6.4-8.2)
[2021-07-27] MEDS ORDERED: HEPARIN LOCK FLUSH 500 UNIT/5 ML SYRINGE IV ONE (11:09)
[2021-07-27] MEDS ORDERED: PANTOPRAZOLE 40 MG VIAL IV SCH (15:00)
[2021-07-27] MEDS ORDERED: traMADol 50 MG TABLET PO PRN (15:58)
[2021-07-27] MEDS ORDERED: ALUMINUM/MAGNES/SIMETH MAX STR 30 ML UDCUP PO PRN (15:58)
[2021-07-27] MEDS ORDERED: diphenhydrAMINE CAP 25 MG CAPSULE PO PRN (15:58)
[2021-07-27] MEDS ORDERED: MYLANTA/LIDO VISC 2:1 300 ML BOTTLE SWISH/SWAL PRN (15:58)
[2021-07-27] MEDS ORDERED: ALPRAZolam 0.25 MG TABLET PO PRN (15:58)
[2021-07-27] MEDS ORDERED: MAGNESIUM HYDROXIDE SUSP 30 ML UDCUP PO PRN (15:58)
[2021-07-27] MEDS ORDERED: ONDANSETRON 4 MG/2 ML VIAL IV PRN (15:58)
[2021-07-27] MEDS ORDERED: LOPERAMIDE 2 MG CAPSULE PO PRN ×2 (15:58)
[2021-07-27] MEDS ORDERED: PROMETHAZINE INJ 25 MG in SODIUM CHLORIDE 0.9% 50 ML IV PRN (15:58)
[2021-07-27] MEDS ORDERED: ACETAMINOPHEN 325 MG TABLET PO PRN (15:58)
[2021-07-27] MEDS ORDERED: MYLANTA/LIDO VISC 2:1 300 ML BOTTLE SWISH/SPIT PRN (15:58)
[2021-07-27] MEDS ORDERED: TEMAZEPAM 7.5 MG CAPSULE PO PRN (15:58)
[2021-07-27] MEDS ORDERED: LACTULOSE 20 GM/30 ML UDCUP PO PRN (15:58)
[2021-07-27] MEDS ORDERED: guaiFENesin 200 MG/10 ML UDCUP PO PRN (15:58)
[2021-07-27] MEDS: DEXTROSE 5% NACL 0.45% 1,000 ML IV SCH (18:35)
[2021-07-27] MEDS ORDERED: POLYETHYLENE GLYCOL POWDER 255 GM BOTTLE PO ONE (19:00)
[2021-07-28] MEDS: PANTOPRAZOLE 40 MG VIAL IV SCH ×2 (03:52→17:47)
[2021-07-28] MEDS: DEXTROSE 5% NACL 0.45% 1,000 ML IV SCH ×2 (04:21→17:43)
[2021-07-28] MEDS ORDERED: POLYETHYLENE GLYCOL POWDER 255 GM BOTTLE PO ONE (05:00)
[2021-07-28 05:40] LABS: Basophils % 0.2 % (0.0-0.8); Hematocrit 21.9 VOL% (35.7-47.0); Hemoglobin 7.2 GM/DL (12.0-16.0); Immature Granulocytes % 7.5 %; Immature Granulocytes Absolute 0.33 #; Lymphocytes # 1.1 10*3/uL (1.4-4.0); Lymphocytes % 24.5 % (21.3-54.2); Mean Corpuscular HGB Conc 32.9 GM/DL (32-36); Mean Corpuscular Volume 92.4 FL (87-102); Monocytes % 30.2 % (1.7-12.7); NRBC # 0.03 10*3/uL; Neutrophils % 37.6 % (38.7-73.9); Platelet Count 56 T/CUMM (130-400); Red Blood Count 2.37 MC/CUMM (3.8-5.5); White Blood Count 4.4 T/CUMM (4-12)
[2021-07-28 06:07] LABS: Hypochromasia 1+; Lymphocytes 25 % (20-55); Microcytosis 1+; Nucleated Red Blood Cells 1 (0-5); Platelet Estimate Decreased; Segmented Neutrophils 48 % (50-85); Total Cells Counted 100
[2021-07-28 06:14] LABS: Albumin 2.5 G/DL (3.4-5.0); Bilirubin,Total 0.7 MG/DL (0.20-1.00); Calcium 8.2 MG/DL (8.5-10.1); Potassium 3.6 MMOL/L (3.5-5.1); Total Protein 7.4 G/DL (6.4-8.2)
[2021-07-28 07:45] LABS: Immunoglobulin G (Chem) 2840 MG/DL (700-1600); Total Protein (Chem) 7.9 G/DL (6.4-8.3)
[2021-07-28 07:46] LABS: Immunoglobulin A (Chem) < 31 MG/DL (70-400); Immunoglobulin M (Chem) < 21 MG/DL (40-230)
[2021-07-28 09:01] LABS: Immuno Free Light Chain Lambda 0.06 MG/DL (0.57-2.63); Immuno Free Light Chain Ratio 1088.33 MG/DL (0.26-1.65)
[2021-07-28 10:09] LABS: Albumin (SPE) 3.5 G/DL (3.2-5.3); Albumin (SPE) Rel % 44.8 %; Alpha 1 (SPE) 0.2 G/DL (0.1-0.4); Alpha 1 (SPE) Rel % 2.7 %; Alpha 2 (SPE) 0.5 G/DL (0.4-1.0); Alpha 2 (SPE) Rel % 6.6 %; Beta (SPE) 0.6 G/DL (0.5-1.1); Beta (SPE) Rel % 7.7 %; Gamma (SPE) Rel % 38.2 %
[2021-07-28] MEDS: LACTATED RINGERS 1,000 ML IV SCH (11:53)
[2021-07-28] MEDS ORDERED: propofoL 200 MG/20 ML VIAL IV ONE (14:00)
[2021-07-28] MEDS ORDERED: LIDOCAINE 2% 5 ML VIAL ONE (14:00)
[2021-07-28] MEDS ORDERED: ETOMIDATE 20 MG/10 ML VIAL IV ONE (14:00)
[2021-07-29] MEDS: DEXTROSE 5% NACL 0.45% 1,000 ML IV SCH ×3 (01:13→21:23)
[2021-07-29] MEDS: PANTOPRAZOLE 40 MG VIAL IV SCH ×2 (03:02→15:51)
[2021-07-29 05:01] LABS: Basophils % 0.3 % (0.0-0.8); Eosinophils % 0.6 % (0.00-10.9); Hemoglobin 6.9 GM/DL (12.0-16.0); Immature Granulocytes % 7.6 %; Immature Granulocytes Absolute 0.24 #; Lymphocytes # 0.9 10*3/uL (1.4-4.0); Lymphocytes % 29.9 % (21.3-54.2); Mean Corpuscular HGB Conc 32.9 GM/DL (32-36); Mean Corpuscular Volume 91.3 FL (87-102); Mean Platelet Volume 10.1 FL (9.6-12.0); Monocytes % 26.8 % (1.7-12.7); NRBC # 0.03 10*3/uL; Neutrophils % 34.8 % (38.7-73.9); Red Cell Distribution Width 21.1 % (9.3-17.3); White Blood Count 3.1 T/CUMM (4-12)
[2021-07-29 05:13] LABS: Platelet Count 56 T/CUMM (130-400)
[2021-07-29 05:26] LABS: Albumin 2.2 G/DL (3.4-5.0); Bilirubin,Total 0.9 MG/DL (0.20-1.00); Calcium 7.7 MG/DL (8.5-10.1); Osmolality,Calculated 276.5 MOS/KG (273-304); Potassium 3.2 MMOL/L (3.5-5.1); Total Protein 6.8 G/DL (6.4-8.2)
[2021-07-29 05:46] LABS: Band Neutrophils 3 % (0-10); Hypochromasia 1+; Lymphocytes 29 % (20-55); Myelocytes 2 %; Segmented Neutrophils 38 % (50-85); Total Cells Counted 100
[2021-07-29 05:47] LABS: Atypical Lymphocytes Few; Microcytosis 1+; Ovalocytes Slight
[2021-07-29 05:48] LABS: Platelet Estimate Decreased
[2021-07-29] MEDS: LACTATED RINGERS 1,000 ML IV SCH ×2 (21:14→21:35)
[2021-07-30] MEDS: PANTOPRAZOLE 40 MG VIAL IV SCH ×2 (04:00→14:56)
[2021-07-30 06:19] LABS: Basophils % 0.4 % (0.0-0.8); Eosinophils % 0.8 % (0.00-10.9); Hematocrit 20.5 VOL% (35.7-47.0); Hemoglobin 6.7 GM/DL (12.0-16.0); Immature Granulocytes % 9.5 %; Immature Granulocytes Absolute 0.24 #; Lymphocytes # 0.9 10*3/uL (1.4-4.0); Lymphocytes % 35.2 % (21.3-54.2); Mean Corpuscular HGB Conc 32.7 GM/DL (32-36); Mean Corpuscular Volume 94.5 FL (87-102); Mean Platelet Volume 11.2 FL (9.6-12.0); Monocytes % 23.7 % (1.7-12.7); NRBC # 0.05 10*3/uL; Neutrophils % 30.4 % (38.7-73.9); Platelet Count 46 T/CUMM (130-400); Red Blood Count 2.17 MC/CUMM (3.8-5.5); Red Cell Distribution Width 20.7 % (9.3-17.3); White Blood Count 2.5 T/CUMM (4-12)
[2021-07-30 06:41] LABS: Atypical Lymphocytes Few; Hypochromasia 1+; Lymphocytes 39 % (20-55); Microcytosis Slight; Nucleated Red Blood Cells 3 (0-5); Ovalocytes Few; Platelet Estimate Decreased; Segmented Neutrophils 39 % (50-85); Total Cells Counted 100
[2021-07-30 07:22] LABS: Albumin 2.1 G/DL (3.4-5.0); Bilirubin,Total 1.3 MG/DL (0.20-1.00); Calcium 7.8 MG/DL (8.5-10.1); Osmolality,Calculated 275.5 MOS/KG (273-304); Total Protein 6.4 G/DL (6.4-8.2)
[2021-07-30] MEDS ORDERED: BISACODYL 10 MG SUPP RECTAL ONE (07:54)
[2021-07-30] MEDS: DEXTROSE 5% NACL 0.45% 1,000 ML IV SCH ×2 (13:57→23:55)
[2021-07-30] MEDS ORDERED: MIRTAZAPINE 15 MG TABLET PO SCH (21:00)
[2021-07-31] MEDS: PANTOPRAZOLE 40 MG VIAL IV SCH (03:30)
[2021-07-31 05:54] LABS: Basophils % 1.4 % (0.0-0.8); Eosinophils % 0.7 % (0.00-10.9); Hematocrit 28.2 VOL% (35.7-47.0); Hemoglobin 9.3 GM/DL (12.0-16.0); Immature Granulocytes % 8.8 %; Immature Granulocytes Absolute 0.26 #; Lymphocytes % 33.3 % (21.3-54.2); Mean Corpuscular Volume 90.1 FL (87-102); Mean Platelet Volume 10.1 FL (9.6-12.0); Monocytes % 28.2 % (1.7-12.7); NRBC # 0.06 10*3/uL; Neutrophils % 27.6 % (38.7-73.9); Red Cell Distribution Width 19.6 % (9.3-17.3); White Blood Count 2.9 T/CUMM (4-12)
[2021-07-31 06:02] LABS: Platelet Count 42 T/CUMM (130-400); Red Blood Count 3.13 MC/CUMM (3.8-5.5)
[2021-07-31 06:23] LABS: Albumin 2.2 G/DL (3.4-5.0); Bilirubin,Total 1.5 MG/DL (0.20-1.00); Calcium 7.9 MG/DL (8.5-10.1); Osmolality,Calculated 273.7 MOS/KG (273-304); Potassium 3.3 MMOL/L (3.5-5.1); Total Protein 6.7 G/DL (6.4-8.2)
[2021-07-31 06:39] LABS: Atypical Lymphocytes Few; Band Neutrophils 1 % (0-10); Eosinophils 1 % (0-10); Lymphocytes 46 % (20-55); Microcytosis 1+; Myelocytes 1 %; Nucleated Red Blood Cells 1 (0-5); Segmented Neutrophils 25 % (50-85); Total Cells Counted 100
[2021-07-31 06:40] LABS: Hypochromasia Slight; Ovalocytes Slight; Platelet Estimate Decreased
[2021-07-31 07:58] VITALS: BP 109/47
[2021-07-31] MEDS: DEXTROSE 5% NACL 0.45% 1,000 ML IV SCH (11:18)
[2021-07-31] MEDS ORDERED: HEPARIN LOCK FLUSH 500 UNIT/5 ML SYRINGE IV ONE (11:33)
== END 2021-07-31 12:09 | disposition home health service (06) | DRG 378 ==
LOC: N.4EOUT 07:04 → N.4E 07:12 → EDSTATUS 07-28 11:00 → N.4EOUT 07-28 11:59 → N.4E 07-28 12:01
PROVIDERS: ADMIT Specialist; ATTEND Specialist